=== PATIENT | male | born 1970 | race African-American/Black ===

== ENCOUNTER 2022-06-04 05:21 | Emergency (ER) | payer OTHER, MEDICAID ==
[~2022-06-04] VITALS: Ht 175.3 cm; Wt 78.6 kg
[2022-06-04 05:52] LABS: BASOPHILS % (AUTO) 0.7 % (0-1); EOSINOPHILS % (AUTO) 0.5 % (0-6); HEMATOCRIT 43.9 % (42.0-52.0); LYMPHOCYTES % (AUTO) 29.1 % (21-51); MEAN CORPUSCULAR HEMOGLOBIN 29.8 PG (27.0-31.0); MEAN CORPUSCULAR HGB CONC 34.3 g/dL (33.0-36.5); MEAN CORPUSCULAR VOLUME 86.9 FL (78-98); MEAN PLATELET VOLUME 8.3 FL (7.4-10.4); MONOCYTES # (AUTO) 0.7 X10'3 (0-0.9); MONOCYTES % (AUTO) 10.2 % (2-12); NEUTROPHILS # (AUTO) 4.2 X10'3 (1.8-7.7); NEUTROPHILS % (AUTO) 59.5 % (42-75); PLATELET COUNT 325 X10'3 (140-440); RED BLOOD COUNT 5.05 X10'6 (4.70-6.10); RED CELL DISTRIBUTION WIDTH 14.1 % (11.5-14.5)
[2022-06-04 06:12] LABS: ALANINE AMINOTRANSFERASE 30 U/L (12-78); ALBUMIN 3.5 G/DL (3.4-5.0); ALBUMIN/GLOBULIN RATIO 0.8 (1.1-1.5); ALKALINE PHOSPHATASE 134 IU/L (46-116); ANION GAP 8 (8-16); ASPARTATE AMINO TRANSFERASE 15 U/L (10-37); BILIRUBIN,TOTAL 0.7 MG/DL (0.1-1.0); BLOOD UREA NITROGEN 12 MG/DL (7-18); BUN/CREATININE RATIO 6.8 (5.4-32.0); CALCIUM 9.1 MG/DL (8.5-10.1); CHLORIDE 92 MMOL/L (99-107); CREATININE 1.77 MG/DL (0.60-1.10); MAGNESIUM 2.3 MG/DL (1.5-2.4); SODIUM 127 MMOL/L (135-145); TOTAL CARBON DIOXIDE 26.9 MMOL/L (24-32); eGFR 49 ML/MIN
[2022-06-04 06:15] LABS: POTASSIUM 4.2 MMOL/L (3.5-5.1)
[2022-06-04 06:16] LABS: GLUCOSE 514 MG/DL (70-104)
[2022-06-04] MEDS ORDERED: insulin regular, human 10 units/0.1 ml syringe IV ONE (06:30)
[2022-06-04] MEDS ORDERED: normal saline 1000ML IV soln IVB ONE (06:30)
[2022-06-04 07:26] LABS: CREATINE KINASE 233 U/L (39-308)
[2022-06-04 09:15] VITALS: BP 127/93
== END 2022-06-04 09:24 | disposition home or self-care (01) ==
LOC: ER 05:21
DX: R07.89 Other chest pain (principal); E11.9 Type 2 diabetes mellitus without complications; F15.10 Other stimulant abuse, uncomplicated; F41.9 Anxiety disorder, unspecified; F32.A Depression, unspecified; F17.200 Nicotine dependence, unspecified, uncomplicated; Z72.89 Other problems related to lifestyle
CPT/HCPCS: 36415; 71045; 80053; 82550; 82948; 83735; 83880; 84484; 85025; 85610; 93005; 96361; 96374; 99285; J1815; J7030

== ENCOUNTER 2022-08-21 01:30 | Emergency (ER) | payer MEDICAID, OTHER ==
[~2022-08-21] VITALS: Ht 175.3 cm; Wt 90.0 kg
[2022-08-21 01:50] LABS: BASOPHILS # (AUTO) 0.1 X10'3 (0-0.2); BASOPHILS % (AUTO) 0.5 % (0-1); EOSINOPHILS % (AUTO) 0.3 % (0-6); HEMATOCRIT 46.5 % (42.0-52.0); HEMOGLOBIN 15.9 g/dl (14.0-17.9); LYMPHOCYTES # (AUTO) 1.3 X10'3 (1.1-4.8); LYMPHOCYTES % (AUTO) 10.9 % (21-51); MEAN CORPUSCULAR HEMOGLOBIN 30.9 PG (27.0-31.0); MEAN CORPUSCULAR HGB CONC 34.1 g/dL (33.0-36.5); MEAN CORPUSCULAR VOLUME 90.7 FL (78-98); MEAN PLATELET VOLUME 8.3 FL (7.4-10.4); MONOCYTES # (AUTO) 0.9 X10'3 (0-0.9); MONOCYTES % (AUTO) 8.1 % (2-12); NEUTROPHILS # (AUTO) 9.3 X10'3 (1.8-7.7); NEUTROPHILS % (AUTO) 80.2 % (42-75); PLATELET COUNT 298 X10'3 (140-440); RED BLOOD COUNT 5.13 X10'6 (4.70-6.10); WHITE BLOOD COUNT 11.6 X10'3 (4.5-11.0)
[2022-08-21] MEDS ORDERED: normal saline 1000ML IV soln IVB ONE ×2 (01:50→03:35)
[2022-08-21 02:11] LABS: ALANINE AMINOTRANSFERASE 39 U/L (12-78); ALBUMIN 4.1 G/DL (3.4-5.0); ALBUMIN/GLOBULIN RATIO 0.9 (1.1-1.5); ALKALINE PHOSPHATASE 114 IU/L (46-116); ANION GAP 19 (8-16); ASPARTATE AMINO TRANSFERASE 83 U/L (10-37); BLOOD UREA NITROGEN 37 MG/DL (7-18); BUN/CREATININE RATIO 17.1 (5.4-32.0); CALCIUM 9.8 MG/DL (8.5-10.1); CHLORIDE 99 MMOL/L (99-107); CREATININE 2.17 MG/DL (0.60-1.10); POTASSIUM 3.6 MMOL/L (3.5-5.1); SODIUM 134 MMOL/L (135-145); TOTAL CARBON DIOXIDE 16.3 MMOL/L (24-32); TOTAL PROTEIN 8.5 G/DL (6.4-8.2); eGFR 39 ML/MIN
[2022-08-21 02:46] LABS: GLUCOSE 492 MG/DL (70-104)
[2022-08-21] MEDS ORDERED: insulin regular, human 10 units/0.1 ml syringe IV ONE (05:05)
[2022-08-21 05:30] VITALS: BP 148/91
[2022-08-21 07:05] LABS: D-DIMER 0.25 MG/L FEU (0-0.50)
[2022-08-22] MEDS ORDERED: LANTUS SQ (14:28)
== END 2022-08-21 08:07 | disposition home or self-care (01) ==
LOC: ER 01:31
DX: E11.65 Type 2 diabetes mellitus with hyperglycemia (principal); R07.89 Other chest pain; I10 Essential (primary) hypertension; F15.20 Other stimulant dependence, uncomplicated
CPT/HCPCS: 36415; 71045; 80053; 82948; 83880; 84484; 85025; 85379; 93005; 96361; 96374; 99285; J1815; J7030

== ENCOUNTER 2022-08-22 13:59 | Emergency (ER) | payer MEDICAID ==
[~2022-08-22] VITALS: Ht 175.3 cm; Wt 85.9 kg
[2022-08-22] MEDS ORDERED: insulin regular, human 10 units/0.1 ml syringe SQ ONE (14:25)
[2022-08-22] MEDS ORDERED: LANTUS SQ (14:28)
[2022-08-22 15:03] VITALS: BP 173/105
== END 2022-08-22 15:23 | disposition home or self-care (01) ==
LOC: ER 14:00
DX: Z76.0 Encounter for issue of repeat prescription (principal); E11.9 Type 2 diabetes mellitus without complications; I10 Essential (primary) hypertension; F15.20 Other stimulant dependence, uncomplicated
CPT/HCPCS: 82948; 96372; 99283; J1815; J7030

== ENCOUNTER 2022-09-02 15:20 | Emergency (ER) | payer MEDICAID ==
[~2022-09-02] VITALS: Ht 175.3 cm; Wt 81.8 kg
[~2022-09-02 15:20] MED LIST: LANTUS SQ
[2022-09-02] MEDS ORDERED: Insulin Reg/NS 100units/100mL 100 ML IV PRN (15:45)
[2022-09-02] MEDS ORDERED: normal saline 1000ML IV soln IVB ONE ×2 (15:45→17:40)
[2022-09-02] MEDS ORDERED: insulin regular, human U-100 3ml vial - multi-dose IV ONE (15:45)
[2022-09-02 16:08] LABS: BASOPHILS % (AUTO) 0.4 % (0-1); EOSINOPHILS # (AUTO) 0.1 X10'3 (0-0.9); EOSINOPHILS % (AUTO) 1.1 % (0-6); HEMATOCRIT 45.1 % (42.0-52.0); HEMOGLOBIN 15.4 g/dl (14.0-17.9); LYMPHOCYTES # (AUTO) 1.7 X10'3 (1.1-4.8); LYMPHOCYTES % (AUTO) 20.7 % (21-51); MEAN CORPUSCULAR HEMOGLOBIN 30.6 PG (27.0-31.0); MEAN CORPUSCULAR HGB CONC 34.1 g/dL (33.0-36.5); MEAN CORPUSCULAR VOLUME 89.8 FL (78-98); MEAN PLATELET VOLUME 8.1 FL (7.4-10.4); MONOCYTES # (AUTO) 0.7 X10'3 (0-0.9); MONOCYTES % (AUTO) 8.7 % (2-12); NEUTROPHILS # (AUTO) 5.8 X10'3 (1.8-7.7); NEUTROPHILS % (AUTO) 69.1 % (42-75); PLATELET COUNT 319 X10'3 (140-440); RED BLOOD COUNT 5.02 X10'6 (4.70-6.10); RED CELL DISTRIBUTION WIDTH 13.7 % (11.5-14.5); WHITE BLOOD COUNT 8.4 X10'3 (4.5-11.0)
[2022-09-02 16:35] LABS: ALANINE AMINOTRANSFERASE 25 U/L (12-78); ALBUMIN/GLOBULIN RATIO 0.7 (1.1-1.5); ALKALINE PHOSPHATASE 153 IU/L (46-116); ANION GAP 6 (8-16); ASPARTATE AMINO TRANSFERASE 19 U/L (10-37); BILIRUBIN,TOTAL 0.4 MG/DL (0.1-1.0); BLOOD UREA NITROGEN 14 MG/DL (7-18); BUN/CREATININE RATIO 10.3 (5.4-32.0); CALCIUM 8.9 MG/DL (8.5-10.1); CHLORIDE 95 MMOL/L (99-107); CREATININE 1.36 MG/DL (0.60-1.10); MAGNESIUM 2.3 MG/DL (1.5-2.4); POTASSIUM 4.6 MMOL/L (3.5-5.1); SODIUM 130 MMOL/L (135-145); TOTAL CARBON DIOXIDE 28.6 MMOL/L (24-32); TOTAL PROTEIN 7.1 G/DL (6.4-8.2); eGFR 67 ML/MIN
[2022-09-02 16:41] LABS: ABG BASE EXCESS 0.5 mmol/L (-2.0-2.0); ABG HCO3 24.3 mmol/L (22.0-26.0); ABG OXYGEN SATURATION 97.8 % (94-97); ABG PCO2 (T) 36.6 mmHg (35.0-48.0); ABG PO2 (T) 101.6 mmHg (75.0-100.0); ALLEN'S TEST POSITIVE; FCOHb 2.4 % (0.0-3.9); FMetHb 0.2 % (0.0-1.5); FO2Hb 95.3 % (94-97); TOTAL HEMOGLOBIN 15.5 G/dl (14.0-17.9)
[2022-09-02 16:42] LABS: GLUCOSE 519 MG/DL (70-104)
[2022-09-02 18:18] VITALS: BP 155/91
[2022-09-02] MEDS ORDERED: METF-881 PO (18:20)
[2022-09-02] MEDS ORDERED: LANTUS SQ (18:20)
[2022-09-02] MEDS ORDERED: [UNRECOGNIZED DRUG - CODE] MC (18:26)
== END 2022-09-02 18:21 | disposition home or self-care (01) ==
LOC: ER 15:21
DX: E11.65 Type 2 diabetes mellitus with hyperglycemia (principal); I10 Essential (primary) hypertension; F15.20 Other stimulant dependence, uncomplicated
CPT/HCPCS: 36415; 36600; 71045; 80053; 82009; 82803; 82948; 83735; 83880; 84484; 85018; 85025; 93005; 96361; 96374; 99285; J1815; J7030

== ENCOUNTER 2025-02-16 17:52 | Inpatient (IN) | payer MEDICAID ==
[~2025-02-16] VITALS: Ht 176.5 cm; Wt 80.5 kg
[~2025-02-16 17:52] MED LIST changes: +ATOR20TA66 PO; +CLOP75TA34 PO; +INSU100V56 SQ; -LANTUS SQ; +METF-438 PO; +METO-384 PO; +MIRT-142 PO
[2025-02-16 19:01] LABS: ALBUMIN 4.4 G/DL (3.4-5.0); ANION GAP 14 (8-16); BLOOD UREA NITROGEN 29 MG/DL (7-18); BUN/CREATININE RATIO 12.4 (10.0-20.0); CALCIUM 9.8 MG/DL (8.5-10.1); CHLORIDE 96 MMOL/L (99-107); CREATININE 2.33 MG/DL (0.60-1.10); POTASSIUM 4.2 MMOL/L (3.5-5.1); SODIUM 137 MMOL/L (135-145); TOTAL CARBON DIOXIDE 27.1 MMOL/L (24-32); eCRCL 37 ML/MIN; eGFR 36 ML/MIN
[2025-02-16 19:02] LABS: BASOPHILS # (AUTO) 0.1 X10'3 (0-0.2); BASOPHILS % (AUTO) 0.9 % (0-1); EOSINOPHILS % (AUTO) 0.5 % (0-6); HEMATOCRIT 47.7 % (42.0-52.0); HEMOGLOBIN 16.1 g/dl (14.0-17.9); LYMPHOCYTES # (AUTO) 2.3 X10'3 (1.1-4.8); LYMPHOCYTES % (AUTO) 30.2 % (21-51); MEAN CORPUSCULAR HEMOGLOBIN 30.4 PG (27.0-31.0); MEAN CORPUSCULAR HGB CONC 33.8 g/dL (33.0-36.5); MEAN CORPUSCULAR VOLUME 90.1 FL (78-98); MONOCYTES # (AUTO) 0.7 X10'3 (0-0.9); MONOCYTES % (AUTO) 8.9 % (2-12); NEUTROPHILS # (AUTO) 4.6 X10'3 (1.8-7.7); NEUTROPHILS % (AUTO) 59.5 % (42-75); PLATELET COUNT 367 X10'3 (140-440); RED BLOOD COUNT 5.29 X10'6 (4.70-6.10); RED CELL DISTRIBUTION WIDTH 14.1 % (11.5-14.5); WHITE BLOOD COUNT 7.6 X10'3 (4.5-11.0)
[2025-02-16 19:11] LABS: GLUCOSE 565 MG/DL (70-104)
--- NOTE | 2025-02-16 22:26 | Physician Documentation ---
History of Present Illness ~ Chief Complaint: Post-operative complication Stated Complaint: LEFT FOOT PAIN Time Seen by MD: 22:13 Primary Medical Doctor: NONE Mode of Arrival: POV HPI Patient presents to the emergency room with concerns for his left 2nd and 3rd digits on his foot. He has had previous amputation secondary to osteomyelitis. He is concerned that the 3rd one in his beginning to develop a hammertoe and this is how he ended up losing his 2nd toe because there who has a blister that developed on his hammertoe. No fevers. Patient endorses not drinking enough water and drinks a lot of pop he states he feels thirsty. He has been out in the hot sun Tetanus witin 5 years: Yes Medication Reconciliation Allergies: Coded Allergies: No Known Allergies (Unverified , 09/11/22) Scheduled Atorvastatin Calcium (Atorvastatin Calcium), 80 MG PO DAILY Clopidogrel Bisulfate (Clopidogrel), 75 MG PO DAILY Insulin Glargine,Hum.rec.anlog (Insulin Glargine), 17 UNITS SQ HS, (Reported) Insulin Glargine,Hum.rec.anlog (Insulin Glargine), 7 UNITS SQ QAM, (Reported) Metformin HCl (Metformin HCl), 500 MG PO TID, (Reported) Metoprolol Succinate (Metoprolol Succinate), 50 MG PO DAILY Mirtazapine (Remeron), 1 TAB PO HS, (Reported) Past Medical History Past Medical History: Coronary Artery Disease, Hypertension, Diabetes, Anxiety, Depression Past Surgical History: noncontributory Alcohol Use: Occasionally Drug Use: methamphetamine Lives with: Family Lives In: Home Review of Systems ROS All review of systems negative except as per HPI Physical Exam Vital Signs: Temperature: 96.8, Source: Temporal, Heart Rate: 120, Respiratory Rate: 16, BP: 141/105, Pulse Oximetry: 100, Weight: 80.450 Oxygen Flow Rate: 0 Physical Exam General: Patient is awake, alert, oriented x4 in no acute distress and well appearing.~ Head: Normocephalic and atraumatic. Eyes: Conjunctival normal. EOMI. PERRL. ENT: Mucous membranes very dry. Neck: Supple, trachea is midline. Chest: Clear to auscultation bilaterally without rales, rhonchi, or wheezes. There is no accessory muscle use or retractions. Cardiac: Tachycardic and regular without murmurs, gallops, or rubs. Abd: Soft, nondistended, nontender, with normoactive bowel sounds. No guarding, rebound, or rigidity. Extremities: Normal strength. Normal range of motion. Left great toe and 2nd toe amputated. Some scaling over stump of 2nd digit on left toe. Mild hammertoe deformity of 3rd digit of left foot. No signs of twyla infection Progress Results/Orders Results/Orders Completed Orders - LAURI MARTINEZ MD Normal Saline 1000ml (Sodium Chloride 10 (02/16/25 22:15) Vital Signs 02/16/25 02/16/25 02/16/25 17:58 21:48 21:58 Temp 96.8 Pulse 135 120 Resp 18 16 16 B/P (MAP) 140/97 141/105 (117) Pulse Ox 97 100 O2 Flow Rate 0 Laboratory Tests Test 02/16/25 18:24 02/16/25 18:34 White Blood Count 7.6 Red Blood Count 5.29 Hemoglobin 16.1 Hematocrit 47.7 Mean Corpuscular Volume 90.1 Mean Corpuscular Hemoglobin 30.4 Mean Corpuscular Hemoglobin Concent 33.8 Red Cell Distribution Width 14.1 Platelet Count 367 Mean Platelet Volume 8.0 Neutrophils (%) (Auto) 59.5 Lymphocytes (%) (Auto) 30.2 Monocytes (%) (Auto) 8.9 Eosinophils (%) (Auto) 0.5 Basophils (%) (Auto) 0.9 Neutrophils # (Auto) 4.6 Lymphocytes # (Auto) 2.3 Monocytes # (Auto) 0.7 Eosinophils # (Auto) 0.0 Basophils # (Auto) 0.1 CBC Comment Sodium Level 137 Potassium Level 4.2 Chloride Level 96 L Carbon Dioxide Level 27.1 Anion Gap 14 Blood Urea Nitrogen 29 H Creatinine 2.33 H Estimated GFR/1.73 m2 36 BUN/Creatinine Ratio 12.4 Glucose Level 565 *H Calcium Level 9.8 Albumin 4.4 Chemistry Comments Procalcitonin < 0.05 Medical Decision Making Findings Patient presents to the emergency room with concerns of his left toes as per HPI. Differentials include but are not limited to osteomyelitis, chronic skin changes, cellulitis, sepsis therefore emergent labs ordered. Labs are concerning for significant hyperglycemia as well as acute kidney injury. He will require admission. IV fluids initiated. I will defer to any investigation to patient's concern for his foot to the hospitalist. Departure Admitted to Inpatient Unit: yes, to hospitalist Impression: Primary Impression: Uncontrolled diabetes mellitus Additional Impression: Acute kidney injury Condition: Guarded Referrals: NO PRIMARY CARE PROVIDER (PCP) Signature Scribe Signature: No scribe Attestation: The note accurately reflects work and decisions made by me.Lauri Martinez MD 02/16/25 22:31 LAURI MARTINEZ MD Feb 16, 2025 22:26
[2025-02-16] MEDS: normal saline 1000ML IV soln IVB ONE (22:36)
[2025-02-17 00:39] LABS: BILIRUBIN,URINE NEGATIVE (Neg); CLARITY,URINE CLEAR (Clear); COLOR,URINE YELLOW (Yellow); GLUCOSE, URINE >=1000 mg/dl (Neg); KETONES,URINE 15 mg/dl (Neg); LEUKOCYTE ESTERASE ,URINE NEGATIVE (Neg); NITRITES, URINE NEGATIVE (Neg); OCCULT BLOOD,URINE NEGATIVE (Neg); PROTEIN,URINE TRACE mg/dl (Neg); UROBILINOGEN,URINE 0.2 E.U/dL (0.2-1.0)
[2025-02-17 00:41] LABS: UA COLLECTION TYPE VOIDED
[2025-02-17 00:45] LABS: RBC,URINE 0-2 /HPF (0-2); SQUAMOUS EPITHELIAL CELL,UR FEW /LPF (FEW); WBC,URINE 0-4 /HPF (0-4)
[2025-02-17] MEDS: insulin regular, human 10 units/0.1 ml syringe IV ONE (00:45)
[2025-02-17 00:46] LABS: BACTERIA,URINE NONE SEEN /HPF (Neg)
[2025-02-17 00:48] LABS: URINE AMPHETAMINE SCREEN POSITIVE (Neg); URINE BARBITUATE SCREEN NEGATIVE (Neg); URINE BENZODIAZEPINES SCREEN NEGATIVE (Neg); URINE CANNABINOID SCREEN NEGATIVE (Neg); URINE COCAINE SCREEN NEGATIVE (Neg); URINE METHADONE SCREEN NEGATIVE (Neg); URINE OPIATE SCREEN NEGATIVE (Neg); URINE PHENCYCLIDINE SCREEN NEGATIVE (Neg)
[2025-02-17] MEDS ORDERED: acetaminophen 325mg tablet PO PRN (02:15)
[2025-02-17] MEDS ORDERED: magnesium Cl slow-release 64mg tablet PO PRN (02:15)
[2025-02-17] MEDS ORDERED: mag hydrox/Alum hydrox/simeth 30ml oral suspension PO PRN (02:15)
[2025-02-17] MEDS ORDERED: magnesium sulf-water 2g/50mL 50 ML IV PRN (02:15)
[2025-02-17] MEDS ORDERED: potassium Cl 40MEQ/1/2NS 520ml 520 ML IV PRN (02:15)
[2025-02-17] MEDS ORDERED: magnesium sulf-water 4G/100mL 100 ML IV PRN (02:15)
[2025-02-17] MEDS ORDERED: magnesium hydroxide 30ml (MOM) UD suspension PO PRN (02:15)
[2025-02-17] MEDS ORDERED: potassium Cl 20 mEq SR tablet PO PRN ×2 (02:15)
[2025-02-17] MEDS ORDERED: PERFLUTREN PROTEIN-A MICROSPHR (Optison) 0.22 MG/ML 3ML VIAL IV PRN (02:23)
--- NOTE | 2025-02-17 02:23 | HISTORY AND PHYSICAL-Residence ---
History & Physical Providers to CC Resident Creating Document: LOS LEES, RES CC: VALENTÍN GONZALES MD ~ History of Present Illness Primary Medical Doctor: NONE Reason for Admit\Complaint: Concern for a wound History of Present Illness A 54-year-old male with past medical history of CHF, CAD status post four stent placements, neuropathy, DM type 2 presented to the ED with concern for a wound on his left foot. Patient states that he underwent amputation after a blistered started on his foot that is similar to the one that he has right now. When he came in the patient's blood sugar was very high in the range of 560 toes and renal function tests were bed. On examination patient's wound was just healing from his previous amputation. Since patient had worsening renal tests and high blood sugars patient has been admitted to the hospital Allergies: Coded Allergies: No Known Allergies (Unverified , 09/11/22) Home Medications Home Medications Active Metoprolol Succinate 50 Mg Tab.sr.24h 50 Mg PO DAILY 90 Days Atorvastatin Calcium 20 Mg Tablet 80 Mg PO DAILY 90 Days Clopidogrel (Clopidogrel Bisulfate) 75 Mg Tablet 75 Mg PO DAILY 90 Days Do not stop medication unless instructed by prescriber. Reported Metformin HCl 1,000 Mg Tablet 500 Mg PO TID 30 Days Remeron (Mirtazapine) 15 Mg Tablet 1 Tab PO HS 30 Days Insulin Glargine (Insulin Glargine,Hum.rec.anlog) 100 Unit/Ml Vial 7 Units SQ QAM Insulin Glargine (Insulin Glargine,Hum.rec.anlog) 100 Unit/Ml Vial 17 Units SQ HS Past Medical History Past Medical History CHF CAD status post four stents Neuropathy DM type 2 Osteomyelitis Past Surgical History Surgical History Comment Amputation of big toe in July last year Amputation of 2nd to a month ago Ankle fracture repair Stent placements Past Social History Social History Comment Lives at home Smokes three cigarettes per day for the last 30 years Drinks hard liquor and beer every day for the last 40 years Consumes marijuana and meth Sees Dr. Manning for Cardiology [facility] primary care Alcohol Use: Occasionally Drug Use: Methamphetamine Lives with: Family Lives In: Home ROS ROS All other systems reviewed in full and negative except for the positives mentioned in HPI Exam Vitals: Vital Signs Date Time Temp Pulse Resp B/P (MAP) Pulse Ox O2 Delivery O2 Flow Rate FiO2 02/16/25 21:58 120 16 141/105 (117) 100 02/16/25 17:58 96.8 0 General: General: Alert, awake, oriented, not in acute distress HEENT: PERRLA, no icterus, pallor, lymphadenopathy, carotid bruit Respiratory system: Bilateral vesicular breath sounds heard, no adventitious breath sounds CVS: S1-S2 heard, no murmurs/rubs/gallop GI: Soft, nontender, no organomegaly, no guarding/rigidity, bowel sounds present Neuro: No focal neurological deficits present Extremities: Amputation of the left big toe and 2nd toe, no edema or cyanosis Skin: Warm and dry Diagnostic Data Last Recorded Lab Results: 02/16/25182302/16/251823 Advance Care Planning Advanced Care plannin - 30 Minutes (I spent 20 minutes discussing various resuscitative measures and the patient decided to be full code) Additional Plan Assessment: A 54-year-old male with past medical history of CHF and CAD status post four stents presented to the ED in worry for wound. On further evaluation patient's wound was healing from his previous surgery of amputation, furthermore patient had very high blood sugar in the range of 500s and worsening renal function for which she is admitted. Plan: Hyperglycemia versus HHS DM type 2 Follow up with serum osmolality and A1c Urine positive for ketones but no acidosis Continue to monitor blood sugars Continue IV fluid NS at 100 cc/hour Plan to place on hyper/hypoglycemia protocol once the blood sugars dropped down to less than 250 with long-acting and short-acting insulins Patient completely asymptomatic Prerenal JOHN probably secondary to renal tubular stasis Elevated BUN and creatinine Continue IV fluids at 100 cc/hour Continue to monitor BMP Substance use disorder U tox positive for amphetamines senior director creative services consult Rule out endocarditis with echo findings CHF, pending EF Follow up with echo Currently patient asymptomatic Consider optimization GDM T CAD status post stents Start on aspirin or clopidogrel after medical reconciliation And optimization with GDM T Neuropathy Continue medications after medical reconciliation History of osteomyelitis and amputation Follow up with lipid panel Code status: Full code Diet: 75 g carb controlled DVT prophylaxis: Heparin Disposition: Admit to ortho, follow up with echo, serum osmolality and A1c Los Lees MD Internal Medicine, PGY 1 Patient evaluated using HIPPA compliant AV device Agree with plan as discussed with the resident Valentín Gonzales MD Date of Service: Feb 17, 2025 Billing Provider: VALENTÍN GONZALES MD, SIVA, RES Feb 17, 2025 02:23 VALENTÍN GONZALES MD Feb 17, 2025 03:46
[2025-02-17] MEDS: normal saline 1000ml 1,000 ML IV SCH (02:50)
[2025-02-17 02:55] LABS: MAGNESIUM 2.3 MG/DL (1.5-2.4); OSMOLALITY 304 MOSM/K (280-300); POTASSIUM 3.6 MMOL/L (3.5-5.1)
[2025-02-17 03:13] LABS: HEMOGLOBIN A1C 11.2 % (4.5-6.2)
[2025-02-17] MEDS ORDERED: SPIR25TA5 PO (03:29)
[2025-02-17] MEDS ORDERED: INSU100I8 SQ (03:29)
[2025-02-17] MEDS ORDERED: VENL75CA61 PO (03:29)
[2025-02-17] MEDS ORDERED: METF-438 PO (07:27)
[2025-02-17] MEDS: K and/or MAG REPLACEMENT MC SCH (08:00)
[2025-02-17] MEDS ORDERED: INSULIN LISPRO 100 UNIT/ML INSULN.PEN MULTI-DOSE SQ SCH ×2 (08:10→12:00)
[2025-02-17] MEDS ORDERED: dextrose 50%-water 50ml dispensing syringe IV PRN ×3 (08:20→08:25)
[2025-02-17] MEDS ORDERED: glucagon, human recombinant 1mg kit SUBCUT PRN ×2 (08:20→08:25)
[2025-02-17] MEDS ORDERED: DEXTROSE 15 GM of carb/4 tabs (each vial/BOTTLE has 4 tablets) PO PRN ×4 (08:20→08:25)
[2025-02-17] MEDS: metoprolol succinate 25mg (24-HOUR) SR. Tablet PO SCH (08:34)
[2025-02-17] MEDS: atorvastatin 20mg tablet PO SCH (08:35)
[2025-02-17] MEDS: venlafaxine XR 75mg capsule (Q24H) PO SCH (08:35)
[2025-02-17] MEDS: heparin, porcine 5000 units/ml vial SQ SCH (08:36)
[2025-02-17] MEDS: docusate sod 100mg capsule PO SCH (08:36)
[2025-02-17 08:58] LABS: CHOL/HDL RATIO 3.4 (0.00-4.99); CHOLESTEROL 178 MG/DL (0-200); HDL CHOLESTEROL 52 MG/DL (35-60); LDL CHOLESTEROL 100 MG/DL (50-100); PRO BRAIN NATRIURETIC PEPTIDE 123 PG/ML (0-125); THYROID STIMULATING HORMONE 0.76 ulU/ml (0.34-4.50); TRIGLYCERIDES 85 MG/DL (20-135)
[2025-02-17] MEDS: INSULIN LISPRO 100 UNIT/ML INSULN.PEN MULTI-DOSE SQ SCH ×2 (09:02→11:50)
[2025-02-17 09:51] VITALS: RESP 16; O2SAT 100
[2025-02-17 10:00] VITALS: BP 123/86; PULSE 96; RESP 14; TEMP 98.3; O2SAT 96
--- NOTE | 2025-02-17 10:10 | PROGRESS NOTE- Residence ---
Progress Note - Resident Providers to CC Resident Creating Document: RUBEN FONG, RES ~ Antibiotic Timeout Antibiotic Ordered?: No Subjective Patient was seen at the bedside this morning. His glucose dropping down to around 200 after 10 units IV insulin, she has a history of alcohol. He wonders if his kidney function is getting better or not. Objective Vital Signs Date Time Temp Pulse Resp B/P (MAP) Pulse Ox O2 Delivery O2 Flow Rate FiO2 02/17/25 09:51 16 100 Room Air 0.0 02/17/25 07:53 99 02/17/25 03:17 146/90 (108) 02/16/25 17:58 96.8 Result Diagram: 02/16/25 1824 02/17/25 0231 Vitals were stable at the moment with CT 99, RR 16, BP 140/90 mm Hg, pulse oximetry 100% on room air. On exam, General: Well alert, well oriented, not confused, not agitated, not in acute distress, well cooperated during the physical. HEENT: Conjunctive are pink, sclerae clear, no icterus, pupil is equal in both sides, reactive to light, no ear discharge, no pharyngeal erythema or an edema, mouth and lips are moist. Neck: Supple, no JVD, no lymphadenopathy and thyromegaly. 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: No focal neurological deficits, no motor and sensory weakness in all 4 extremities, could move all 4 extremities Musculoskeletal: No joint swelling, deformities, inflammations, and no scoliosis and back tenderness Skin: No active skin lesions and rashes Assessment Assessment A 54 years old male with a past medical history of CAD, s/p four stents for RCA thrombosis (complicated with history of cardiac arrest and VFib), T2 DM with neuropathy, substance abuse history with methamphetamine, s/p amputated left 1st and 2nd toes came in with the concern of left foot wound and found to have the severely elevated RBS with 560. He was admitted for the better blood glucose control and management for the Acute on chronic kidney injury. Plan Plan # Uncontrolled and non-complaince T2DM # Peripheral neuropathy -pt RBS dropped down to 207 after IV Insulin 10 units -Put the pt on the hyper/hypoglycemic protocol with medium dose sliding scale regimen, 5 units of glargine at nighttime and 8 units of lispro after meals. -HGB A1c 11.2 -continue IV fluid -wound care # JOHN from possible prerenal- renal tubular stasis -pending urine and serum osmolality, urine lytes -her baseline creatinine was around 1.1, EGFR was >90 last year -monitor I's and O's, rate of EGFR declining with time -continue IV fluid with 100 mL/hr, daily CMP -avoid using nephrotoxic drugs including pain killer # substance abuse disorder-amphetamine -substance navigator was requested and social media marketer were provided, appreciate -patient did not show any active S/S IE aka did not meet any Deshpande's criteria at the moment -educated about the risks and relationships of the possible consequences from the substance abuse # Hx of HFpEF 60%- not exacerbated # CAD, s/p 4 stents for RCA thrombosis (complicated with history of cardiac arrest and VFib) -not in acute exacerbation -cont home meds after med rec CODE STATUS: Full code DVT prophylaxis: Sc heparin Lines/tubes: Peripheral IV GI prophylaxis: None Nutrition: 75 g carb controlled Prognosis: Guarded Disposition: Continue medical management including blood sugar control, diabetic foot care, IV fluids, substance navigation and social media marketer for substance abuse, PT eval and DC plan. Resident MD attestation: Patient was seen, examined and discussed with attending MD, Dr. Janay FONG MD Internal Medicine Resident, PGY2 [facility] Date of Service: Feb 17, 2025 Billing Provider: EVAN DANIEL MD Common Visit Codes: [id number] INP/OBS CARE(HIGH) RUBEN FONG, RES Feb 17, 2025 10:10 EVAN DANIEL MD Feb 17, 2025 18:39
[2025-02-17] MEDS: JUVEN Smoothie Arginine/Glut./Ca2+Bmb (Juven 19.3pkt) 240ml cup PO SCH (17:30)
[2025-02-17 18:00] VITALS: BP 156/101; PULSE 50; RESP 18; TEMP 97.9; O2SAT 95
--- NOTE | 2025-02-17 18:00 | CARDIOLOGY REPORT ---
APPROVED REPORT EXAM: Comprehensive 2D, Doppler, and color-flow Echocardiogram. Patient Location: [facility] Heart Rate: 85 bpm Rhythm: SINUS W/ BBB Indications ENDOCARDITIS MYOCARDIAL INFARCTION - STENT X 1 HYPERTENSION DIABETES Site Leader: Aiden Barry MD PREVIOUS: 07/16/23 [facility] JT EF: 60%; nlLV; mRVE-nlFX; nlLA;trMR; mTR; 2D Dimensions RVDd 3.5 cm LVOT Diameter 2.17 (1.8-2.4cm) CO 4.0 L/min M-Mode Dimensions Left Atrium(MM) 3.37 (2.5-4.0cm) IVSd 0.93 (0.7-1.1cm) LVDd 4.23 (4.0-5.6cm) Aortic Root 3.37 (2.2-3.7cm) PWd 0.99 (0.7-1.1cm) Aortic Cusp Exc 2.49 (1.5-2.0cm) IVSs 1.28 cm MV EPSS 2.0 (<0.5cm) LVDs 2.95 (2.0-3.8cm) FS (%) 30 % PWs 1.28 cm ESV(Teich) 33.5 ml LVEF(%) 58 (>50%) Aortic Valve AoV Peak Otto. 114.5 cm/s AoV VTI 18.9 cm AO Peak GR. 5.2 mmHg AO Mean GR. 3 mmHg LVOT VTI 15.52 cm LVOT Peak Otto. 86.9 cm/s JAMIE(VTI)/BSA 3.03 cm2/m2 JAMIE (VTI) 3.03 cm2 Mitral Valve MV E Velocity 76.6 cm/s MV Peak Gr. 2 mmHg MV A Velocity 99.3 cm/s MV PHT 46 ms E/A Ratio 0.8 MVA (PHT) 4.78 cm2 MV VMax78.2 cm/s Tricuspid Valve TR P. Velocity 148 cm/s RAP ESTIMATE 10 mmHg TR Peak Gr. 9 mmHg RVSP 19 mmHg LEFT VENTRICLE Normal LV size with mild concentric hypertrophy. Anterior septal hypokinesis. Overall well preserved systolic function. LVEF is 55%. RIGHT VENTRICLE RV is mildly increased in size with low normal function. ATRIA The left atrium size is normal. AORTIC VALVE Trileaflet AV appears mildly sclerotic without stenosis or insufficiency. MITRAL VALVE Normal MV annulus with thickened leaflets without stenosis. Trace regurgitation. TRICUSPID VALVE TV appears structurally normal with trace regurgitation. PULMONIC VALVE Normal PV without stenosis, physiologic insufficiency. GREAT VESSELS Aortic root is normal in size. Normal appearing arch with normal flow velocities. Ascending aorta is normal in size. PERICARDIUM Normal pericardium. No effusion. Other Information Study Quality: Adequate Conclusion Normal LV size with mild concentric hypertrophy. Anterior septal hypokinesis. Overall well preserved systolic function. LVEF is 55%. RV is mildly increased in size with low normal function. The left atrium size is normal. Trileaflet AV appears mildly sclerotic without stenosis or insufficiency. Normal MV annulus with thickened leaflets without stenosis. Trace regurgitation. TV appears structurally normal with trace regurgitation. Normal pericardium. No effusion.
[2025-02-17 20:00] VITALS: RESP 18; O2SAT 95
[2025-02-17] MEDS: insulin glargine (Lantus) pen - multi-dose SQ SCH (20:28)
[2025-02-17 22:00] VITALS: BP 140/87; PULSE 93; RESP 16; TEMP 98.2; O2SAT 100
[2025-02-18] VITALS (7 sets, daily range): BP systolic 124–136; BP diastolic 62–88; PULSE 58–93; RESP 16–20; TEMP 97–98.3; O2SAT 92–100
[2025-02-18 07:17] LABS: EOSINOPHILS # (AUTO) 0.2 X10'3 (0-0.9); HEMATOCRIT 43.7 % (42.0-52.0); HEMOGLOBIN 14.9 g/dl (14.0-17.9); LYMPHOCYTES # (AUTO) 2.4 X10'3 (1.1-4.8); LYMPHOCYTES % (AUTO) 48.1 % (21-51); MEAN CORPUSCULAR HEMOGLOBIN 30.3 PG (27.0-31.0); MEAN CORPUSCULAR HGB CONC 34.1 g/dL (33.0-36.5); MEAN PLATELET VOLUME 8.5 FL (7.4-10.4); MONOCYTES # (AUTO) 0.4 X10'3 (0-0.9); NEUTROPHILS % (AUTO) 39.9 % (42-75); PLATELET COUNT 268 X10'3 (140-440); RED BLOOD COUNT 4.91 X10'6 (4.70-6.10); RED CELL DISTRIBUTION WIDTH 13.6 % (11.5-14.5)
[2025-02-18] MEDS: MULTIVIT-MIN/FERROUS GLUCONATE 9 MG/15 ML LIQUID PO SCH (07:41)
[2025-02-18] MEDS: folic acid 1mg tablet PO SCH (07:43)
[2025-02-18] MEDS: cyanocobalamin 500mcg tablet PO SCH (07:43)
[2025-02-18 07:59] LABS: ALBUMIN 3.2 G/DL (3.4-5.0); ANION GAP 11 (8-16); BLOOD UREA NITROGEN 22 MG/DL (7-18); BUN/CREATININE RATIO 20.6 (10.0-20.0); CALCIUM 8.7 MG/DL (8.5-10.1); CHLORIDE 106 MMOL/L (99-107); CREATININE 1.07 MG/DL (0.60-1.10); GLUCOSE 163 MG/DL (70-104); MAGNESIUM 2.1 MG/DL (1.5-2.4); SODIUM 139 MMOL/L (135-145); TOTAL CARBON DIOXIDE 22.2 MMOL/L (24-32); eCRCL 81 ML/MIN; eGFR 87 ML/MIN
[2025-02-18 08:00] LABS: POTASSIUM 4.3 MMOL/L (3.5-5.1)
[2025-02-18] MEDS: normal saline 1000ml 1,000 ML IV ONE ×2 (11:35→11:40)
[2025-02-18] MEDS: acetaminophen 325mg tablet PO PRN (13:03)
[2025-02-18 16:02] LABS: BILIRUBIN,URINE NEGATIVE (Neg); CLARITY,URINE CLEAR (Clear); COLOR,URINE YELLOW (Yellow); GLUCOSE, URINE 500 mg/dl (Neg); KETONES,URINE NEGATIVE (Neg); LEUKOCYTE ESTERASE ,URINE NEGATIVE (Neg); NITRITES, URINE NEGATIVE (Neg); OCCULT BLOOD,URINE NEGATIVE (Neg); PROTEIN,URINE NEGATIVE (Neg); UROBILINOGEN,URINE 0.2 E.U/dL (0.2-1.0)
[2025-02-18 16:08] LABS: UA COLLECTION TYPE CLN CATCH MIDSTREAM
[2025-02-18] MEDS: ondansetron/PF 4mg/2ml inj IV PRN (17:58)
[2025-02-19 06:00] VITALS: BP 137/91; PULSE 76; RESP 16; TEMP 98; O2SAT 99
[2025-02-19 06:26] LABS: BASOPHILS % (AUTO) 0.9 % (0-1); EOSINOPHILS # (AUTO) 0.2 X10'3 (0-0.9); HEMATOCRIT 43.2 % (42.0-52.0); LYMPHOCYTES # (AUTO) 2.2 X10'3 (1.1-4.8); LYMPHOCYTES % (AUTO) 52.1 % (21-51); MEAN CORPUSCULAR HEMOGLOBIN 30.9 PG (27.0-31.0); MEAN CORPUSCULAR HGB CONC 34.7 g/dL (33.0-36.5); MEAN PLATELET VOLUME 8.2 FL (7.4-10.4); MONOCYTES # (AUTO) 0.4 X10'3 (0-0.9); MONOCYTES % (AUTO) 9.2 % (2-12); NEUTROPHILS # (AUTO) 1.4 X10'3 (1.8-7.7); NEUTROPHILS % (AUTO) 33.8 % (42-75); PLATELET COUNT 277 X10'3 (140-440); RED BLOOD COUNT 4.85 X10'6 (4.70-6.10); RED CELL DISTRIBUTION WIDTH 13.6 % (11.5-14.5); WHITE BLOOD COUNT 4.3 X10'3 (4.5-11.0)
[2025-02-19 06:32] LABS: ALBUMIN 2.8 G/DL (3.4-5.0); ANION GAP 7 (8-16); BLOOD UREA NITROGEN 15 MG/DL (7-18); BUN/CREATININE RATIO 14.9 (10.0-20.0); CALCIUM 8.4 MG/DL (8.5-10.1); CHLORIDE 106 MMOL/L (99-107); CREATININE 1.01 MG/DL (0.60-1.10); GLUCOSE 238 MG/DL (70-104); MAGNESIUM 1.7 MG/DL (1.5-2.4); POTASSIUM 4.1 MMOL/L (3.5-5.1); SODIUM 137 MMOL/L (135-145); TOTAL CARBON DIOXIDE 24.3 MMOL/L (24-32); eCRCL 86 ML/MIN; eGFR > 90 ML/MIN
[2025-02-19 08:00] VITALS: RESP 16; O2SAT 99
[2025-02-19] MEDS: insulin glargine (Lantus) pen - multi-dose SQ STA (09:11)
[2025-02-19 10:00] VITALS: BP 131/89; PULSE 74; RESP 16; TEMP 97.7; O2SAT 99
[2025-02-19] MEDS: gabapentin 300mg capsule PO ONE (11:29)
[2025-02-19] MEDS: INSULIN LISPRO 100 UNIT/ML INSULN.PEN MULTI-DOSE SQ SCH (14:18)
--- NOTE | 2025-02-19 15:39 | RADIOLOGY REPORT ---
CLINICAL HISTORY: History of toe amputation 6 weeks ago. Cellulitis. TECHNIQUE: Multi sequence multi planar MRI images of the left midfoot forefoot were obtained without IV contrast. COMPARISON: None available at the time of dictation. FINDINGS: Postsurgical changes of prior amputations involving the distal aspect of the proximal phal anx of the great toe at the base of the proximal phalanx of the 2nd digit. Prominent subcutaneous nakul ma is seen at the amputation stump of the 2nd digit and, to a lesser extent adjacent to the 1st digit amputation stump, may correlate with reported history of cellulitis. There is prominent STIR hyperin tense signal of the base of the proximal phalanx of the 2nd digit with areas of T1 hypointense signal , possible osteomyelitis in the appropriate clinical setting no other evidence for osteomyelitis. Lik olvin mild reactive marrow changes of the distal aspect of the proximal phalanx of the great toe with m ild t2/stir hyperintense signal but no associated T1 hypointense signal. No organized fluid collectio n identified to suggest abscess, although limited evaluation for abscess on noncontrast enhanced exam . There is a bipartite tibial sesamoid of the 1st metatarsal which demonstrates moderate stir hyperin tense signal, possible sesamoiditis in the appropriate clinical setting. IMPRESSION: 1. Postsurgical changes of prior amputations of the 1st and 2nd digits as described above. 2. Subcutaneous edema in the 1st and 2nd digits, greater in the 2nd digit, near the amputation stumps , may correlate with reported clinical history of cellulitis in the appropriate clinical setting. No organized fluid collection identified to suggest abscess, although limited evaluation for abscess on noncontrast enhanced exam. 3. Marrow signal abnormality of the base of the proximal phalanx of the 2nd digit, suspicious for ost eomyelitis in the setting of overlying soft tissue infection.
--- NOTE | 2025-02-19 16:27 | PROGRESS NOTE- Residence ---
Progress Note - Resident Providers to CC Resident Creating Document: RUBEN FONG RES ~ Antibiotic Timeout Antibiotic Ordered?: Yes MRSA Education MRSA Education Provided to pt: Yes Subjective *This is a progress note for 02/18/2025* Patient worsened at the bedside this morning. Patient does not complain any medical concerns except for the stomach upset and kidney injury. He did not complain about any pain/discharge from his amputated toes. Objective Vital Signs Date Time Temp Pulse Resp B/P (MAP) Pulse Ox O2 Delivery O2 Flow Rate FiO2 02/19/25 06:00 98.0 76 16 137/91 (106) 99 Room Air 02/18/25 08:00 0.0 Result Diagram: 02/19/2539 02/19/2539 Vitals were stable at the moment. On exam, General: Well alert, well oriented, not confused, not agitated, not in acute distress, well cooperated during the physical. HEENT: Conjunctive are pink, sclerae clear, no icterus, pupil is equal in both sides, reactive to light, no ear discharge, no pharyngeal erythema or an edema, mouth and lips are moist. Neck: Supple, no JVD, no lymphadenopathy and thyromegaly. 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: No focal neurological deficits, no motor and sensory weakness in all 4 extremities, could move all 4 extremities Musculoskeletal: No joint swelling, deformities, inflammations, and no scoliosis and back tenderness Skin: No active skin lesions and rashes Assessment Assessment A 54 years old male with a past medical history of CAD, s/p four stents for RCA thrombosis (complicated with history of cardiac arrest and VFib), T2 DM with neuropathy, substance abuse history with methamphetamine, s/p amputated left 1st and 2nd toes came in with the concern of left foot wound and found to have the severely elevated RBS with 560. He was admitted for the better blood glucose control and management for the Acute on chronic kidney injury. Plan Plan # Uncontrolled and non-complaince T2DM # Peripheral neuropathy # Left amputated toes w/ suspected cellulitis Vs Osteomyelitis -pt RBS she will be controlled between 140-180 during hospitalization -continue hyper/hypoglycemic protocol with medium dose sliding scale regimen, 5 units of glargine at nighttime and 8 units of lispro after meals. -HGB A1c 11.2 -he was given 2 L of bolus normal saline followed by 1:50 a.m. cc/hours and continue IV fluid -wound care -Ordered to f/up w/ MRI LE # JOHN from possible prerenal- renal tubular stasis -his finances 1.2%, most probably from the renal tubular stasis in prerenal cause -heis baseline creatinine was around 1.1, EGFR was >90 last year -monitor I's and O's, rate of EGFR declining with time -continue IV fluid with 150 mL/hr, daily CMP -avoid using nephrotoxic drugs including pain killer # substance abuse disorder-amphetamine -substance navigator was requested and health care social worker were provided, appreciate -patient did not show any active S/S IE aka did not meet any Deshpande's criteria at the moment -educated about the risks and relationships of the possible consequences from the substance abuse # Hx of HFpEF 60%- not exacerbated # CAD, s/p 4 stents for RCA thrombosis (complicated with history of cardiac arrest and VFib) -not in acute exacerbation -cont home meds after med rec CODE STATUS: Full code DVT prophylaxis: Sc heparin Lines/tubes: Peripheral IV GI prophylaxis: None Nutrition: 75 g carb controlled Prognosis: Guarded Disposition: Continue medical management including blood sugar control, diabetic foot care, IV fluids, substance navigation and health care social worker for substance abuse, PT eval and DC plan with possible discharge tomorrow after MRI LE ruled out OM. Resident attestation: Patient was seen, examined and discussed with attending MD, Dr. Janay FONG MD Internal Medicine Resident, PGY2 [facility] Date of Service: Feb 19, 2025 Billing Provider: SARABJIT AVITIA MD Common Visit Codes: [id number] INP/OBS CARE(HIGH) RUBEN FONG, RES Feb 19, 2025 16:27 SARABJIT AVITIA MD Feb 23, 2025 17:42
[2025-02-19] MEDS: CefTRIAXone/D5W-Rocephin 1gm 50 ML IV ONE (18:10)
--- NOTE | 2025-02-19 18:41 | PROGRESS NOTE- Residence ---
Progress Note - Resident Providers to CC Resident Creating Document: JANE BENNETT, RES ~ Antibiotic Timeout Antibiotic Ordered?: Yes Subjective The patient was seen and examined at bedside today. He has no new complaints. He reported that he is a brittle diabetic and maintains compliance with his insulin. He takes about 17 to 25 units of Lantus, sliding scale Humalog and metformin b.i.d. for his diabetes. Objective Vital Signs Date Time Temp Pulse Resp B/P (MAP) Pulse Ox O2 Delivery O2 Flow Rate FiO2 02/19/25 06:00 98.0 76 16 137/91 (106) 99 Room Air 02/18/25 08:00 0.0 Result Diagram: 02/19/25 0539 02/19/25 0539 Adult male, alert and oriented x4, not in acute distress Head: Normocephalic with an atraumatic Eyes: Pupils- 3mm, reacting to light, conjunctiva- anicteric Nose and throat: No polyps, septum- normal, no mucosal ulcers Neck: Supple, no lymphadenopathy, no carotid bruit Respiratory: No use of accessory muscles of respiration, Bilateral normal vesiscular breath sounds heard. No wheeze, rhochi or creps Cardiac: S1-S2 heard, rhythm regular, no gallop/murmur Abdomen: non distended, no tenderness, no organomegaly, bowel sounds - heard Extremities: Left foot great toe partially amputated, 2nd digit completely amputated, ulcer present with no pus drainage, swelling present Skin: warm and dry, no rash, no purpura Neuro: No focal deficit, gross cranial nerve exam - normal Assessment Assessment A 54 years old male with a past medical history of CAD, s/p four stents for RCA thrombosis (complicated with history of cardiac arrest and VFib), T2 DM with neuropathy, substance abuse history with methamphetamine, s/p amputated left 1st and 2nd toes came in with the concern of left foot wound and found to have the severely elevated RBS with 560. He was admitted for the better blood glucose control and management for the Acute on chronic kidney injury. Plan Plan Left 2nd digit osteomyelitis Status post great toe partial amputation and 2nd digit complete amputation MRI showed subcutaneous edema in the 1st and 2nd digits, suspected osteomyelitis at the base of proximal phalanx of 2nd digit. Infectious diseases, Dr. Baker consulted. Patient is on IV ceftriaxone and vancomycin. Also started the patient on terbinafine cream for topical application. Uncontrolled type 2 diabetes mellitus Brittle diabetic Started the patient on 20 units Lantus, 5 units fixed dose Humalog and medium dose supplemental insulin protocol. HB A1c 11.2. JOHN from possible prerenal- renal tubular stasis Resolved with IV fluids. Continue normal saline at 100 mL/hour. Substance abuse disorder-amphetamines advisory services associate and substance use navigator consulted. Hx of HFpEF 60%- not exacerbated CAD, s/p 4 stents for RCA thrombosis (complicated with history of cardiac arrest and VFib) -not in acute exacerbation -continue metoprolol. CODE STATUS: Full code DVT prophylaxis: Sc heparin Lines/tubes: Peripheral IV GI prophylaxis: None Nutrition: 75 g carb controlled Prognosis: Guarded Disposition: Continue care in medical heredia. Awaiting ID recommendations for osteomyelitis. Jane Bennett MD Internal Medicine Resident, PGY-1 Date of Service: Feb 19, 2025 Billing Provider: SARABJIT AVITIA MD Common Visit Codes: [id number] INP/OBS CARE(HIGH) JANE BENNETT, RES Feb 19, 2025 18:41 SARABJIT AVITIA MD Feb 23, 2025 17:43
[2025-02-19 19:00] VITALS: BP 117/79; PULSE 63; RESP 18; TEMP 97.3; O2SAT 99
[2025-02-19] MEDS: gabapentin 300mg capsule PO SCH (20:03)
[2025-02-19] MEDS: vancomycin/NS 1 GM ADD-VANTAGE 250 ML IV SCH (20:04)
[2025-02-19] MEDS: terbinafine cream 30gm TP SCH (20:07)
[2025-02-19] MEDS: insulin glargine (Lantus) pen - multi-dose SQ SCH (21:31)
[2025-02-19 22:00] VITALS: BP 150/94; PULSE 78; RESP 17; TEMP 97.7; O2SAT 99
[2025-02-20 05:00] VITALS: BP 132/85; PULSE 71; RESP 18; TEMP 96.9; O2SAT 97
[2025-02-20 06:10] LABS: ALBUMIN 2.7 G/DL (3.4-5.0); ANION GAP 7 (8-16); BLOOD UREA NITROGEN 12 MG/DL (7-18); BUN/CREATININE RATIO 12.6 (10.0-20.0); CALCIUM 8.8 MG/DL (8.5-10.1); CHLORIDE 108 MMOL/L (99-107); CREATININE 0.95 MG/DL (0.60-1.10); GLUCOSE 193 MG/DL (70-104); MAGNESIUM 1.9 MG/DL (1.5-2.4); POTASSIUM 3.9 MMOL/L (3.5-5.1); SODIUM 140 MMOL/L (135-145); TOTAL CARBON DIOXIDE 24.7 MMOL/L (24-32); eCRCL 91 ML/MIN; eGFR > 90 ML/MIN
[2025-02-20 07:35] LABS: EOSINOPHILS # (AUTO) 0.1 X10'3 (0-0.9); EOSINOPHILS % (AUTO) 3.2 % (0-6); HEMATOCRIT 44.9 % (42.0-52.0); HEMOGLOBIN 15.3 g/dl (14.0-17.9); LYMPHOCYTES % (AUTO) 43.3 % (21-51); MEAN CORPUSCULAR HEMOGLOBIN 30.6 PG (27.0-31.0); MEAN PLATELET VOLUME 8.1 FL (7.4-10.4); MONOCYTES # (AUTO) 0.6 X10'3 (0-0.9); MONOCYTES % (AUTO) 12.9 % (2-12); NEUTROPHILS # (AUTO) 1.8 X10'3 (1.8-7.7); NEUTROPHILS % (AUTO) 39.6 % (42-75); PLATELET COUNT 276 X10'3 (140-440); RED BLOOD COUNT 4.99 X10'6 (4.70-6.10); RED CELL DISTRIBUTION WIDTH 13.4 % (11.5-14.5); WHITE BLOOD COUNT 4.6 X10'3 (4.5-11.0)
[2025-02-20 08:00] VITALS: RESP 16; O2SAT 100
[2025-02-20] MEDS: CefTRIAXone/D5W-Rocephin 1gm 50 ML IV SCH (08:56)
[2025-02-20 09:04] LABS: C-REACTIVE PROTEIN 0.06 MG/DL (0.0-0.5)
[2025-02-20 10:00] VITALS: BP 151/93; PULSE 97; RESP 16; TEMP 97.6; O2SAT 100
--- NOTE | 2025-02-20 14:04 | RADIOLOGY REPORT ---
CLINICAL INDICATION: cellulitis TECHNIQUE: Left DI FOOT, COMPLETE (3VW MIN) Comparison: None FINDINGS/IMPRESSION: : There is no evidence of acute fracture or dislocation. Post surgical resection of the distal 1st and 2nd digit. Diffuse subcutaneous soft-tissue edema and swelling.
--- NOTE | 2025-02-20 14:16 | VASCULAR REPORT ---
EXAM: VASC VL ARTERIAL HISTORY: Left lower extremity pain COMPARISON: None TECHNIQUE: Real-time grayscale and color Doppler images of the left lower extremity were obtained wit h spectral waveform analysis. Findings: Arterial peak systolic velocities reported in units of centimeters per second (cm/sec): MARSHAL not performed due to pedal atherosclerosis. Left side: Common femoral - 57 Profunda - 60 Proximal SFA - 71 Mid SFA - 68 Distal SFA - 52 Popliteal - 48 Peroneal - 25 Posterior tibial - 51 Anterior tibial - 38 Diffuse multiphasic waveforms with the exception of the which are monophasic. Mild atherosclerosis. IMPRESSION: 1. No evidence of hemodynamically significant stenosis throughout the left lower extremity arterial s ystem.
--- NOTE | 2025-02-20 17:03 | PROGRESS NOTE- Residence ---
Progress Note - Resident Providers to CC Resident Creating Document: JANE BENNETT, RES ~ Antibiotic Timeout Antibiotic Ordered?: Yes Subjective The patient was seen and examined at bedside today. He has no new complaints. He was concerned that his MRI showed features of osteomyelitis. He said he tried to contact the doctors but no one returned his phone call for follow up after his amputation. He underwent great toe amputation in July and 2nd digit amputation towards end of December. Dr. Baker and Dr. Teran consulted. Objective Vital Signs Date Time Temp Pulse Resp B/P (MAP) Pulse Ox O2 Delivery O2 Flow Rate FiO2 02/20/25 10:00 97.6 97 16 151/93 (112) 100 Room Air 02/20/25 08:00 0.0 Result Diagram: 02/20/25 0659 02/20/25 0457 Adult male, alert and oriented x4, not in acute distress Head: Normocephalic with an atraumatic Eyes: Pupils- 3mm, reacting to light, conjunctiva- anicteric Nose and throat: No polyps, septum- normal, no mucosal ulcers Neck: Supple, no lymphadenopathy, no carotid bruit Respiratory: No use of accessory muscles of respiration, Bilateral normal vesiscular breath sounds heard. No wheeze, rhochi or creps Cardiac: S1-S2 heard, rhythm regular, no gallop/murmur Abdomen: non distended, no tenderness, no organomegaly, bowel sounds - heard Extremities: Left foot great toe partially amputated, 2nd digit completely amputated, ulcer present with no pus drainage, swelling present Skin: warm and dry, no rash, no purpura Neuro: No focal deficit, gross cranial nerve exam - normal Assessment Assessment A 54 years old male with a past medical history of CAD, s/p four stents for RCA thrombosis (complicated with history of cardiac arrest and VFib), T2 DM with neuropathy, substance abuse history with methamphetamine, s/p amputated left 1st and 2nd toes came in with the concern of left foot wound and found to have the severely elevated RBS with 560. He was admitted for the better blood glucose control and management for the Acute on chronic kidney injury. Plan Plan Left 2nd digit osteomyelitis Status post great toe partial amputation and 2nd digit complete amputation MRI showed subcutaneous edema in the 1st and 2nd digits, suspected osteomyelitis at the base of proximal phalanx of 2nd digit. Infectious diseases, Dr. Baker and physical therapist, Dr. Teran consulted. X-ray foot and arterial ultrasound ordered as per Dr. Teran's recommendations Patient is on IV ceftriaxone and vancomycin. Also started the patient on terbinafine cream for topical application. Uncontrolled type 2 diabetes mellitus Brittle diabetic Started the patient on 20 units Lantus, 5 units fixed dose Humalog and medium dose supplemental insulin protocol. HB A1c 11.2. JOHN from possible prerenal- renal tubular stasis Resolved with IV fluids. Continue normal saline at 100 mL/hour. Substance abuse disorder-amphetamines visitor services specialist and substance use navigator consulted. Hx of HFpEF 60%- not exacerbated CAD, s/p 4 stents for RCA thrombosis (complicated with history of cardiac arrest and VFib) Not in acute exacerbation Continue metoprolol. CODE STATUS: Full code DVT prophylaxis: Sc heparin Lines/tubes: Peripheral IV GI prophylaxis: None Nutrition: 75 g carb controlled Prognosis: Guarded Disposition: Continue care in medical heredia. Awaiting ID and Podiatry recommendation for osteomyelitis. Jane Bennett MD Internal Medicine Resident, PGY-1 Date of Service: Feb 20, 2025 Billing Provider: SARABJIT AVITIA MD Common Visit Codes: [id number] INP/OBS CARE(HIGH) JANE BENNETT, RES Feb 20, 2025 17:03 SARABJIT AVITIA MD Feb 23, 2025 17:43
[2025-02-20 18:00] VITALS: BP 143/94; PULSE 75; RESP 16; TEMP 97.3; O2SAT 100
[2025-02-20 22:00] VITALS: BP 124/81; PULSE 73; RESP 20; TEMP 97.2; O2SAT 100
[2025-02-20] MEDS: dextrose 50%-water 50ml dispensing syringe IV PRN (23:15)
[2025-02-21 06:00] VITALS: BP 146/91; PULSE 60; RESP 16; TEMP 97.2; O2SAT 100
[2025-02-21 06:05] LABS: BASOPHILS % (AUTO) 0.8 % (0-1); EOSINOPHILS # (AUTO) 0.1 X10'3 (0-0.9); EOSINOPHILS % (AUTO) 2.6 % (0-6); HEMATOCRIT 44.8 % (42.0-52.0); HEMOGLOBIN 15.1 g/dl (14.0-17.9); LYMPHOCYTES % (AUTO) 37.2 % (21-51); MEAN CORPUSCULAR HEMOGLOBIN 30.1 PG (27.0-31.0); MEAN CORPUSCULAR HGB CONC 33.8 g/dL (33.0-36.5); MEAN PLATELET VOLUME 8.3 FL (7.4-10.4); MONOCYTES # (AUTO) 0.5 X10'3 (0-0.9); MONOCYTES % (AUTO) 8.5 % (2-12); NEUTROPHILS # (AUTO) 2.7 X10'3 (1.8-7.7); NEUTROPHILS % (AUTO) 50.9 % (42-75); PLATELET COUNT 275 X10'3 (140-440); RED BLOOD COUNT 5.03 X10'6 (4.70-6.10); RED CELL DISTRIBUTION WIDTH 13.5 % (11.5-14.5); WHITE BLOOD COUNT 5.4 X10'3 (4.5-11.0)
[2025-02-21 06:27] LABS: ALBUMIN 2.7 G/DL (3.4-5.0); ANION GAP 8 (8-16); BLOOD UREA NITROGEN 16 MG/DL (7-18); BUN/CREATININE RATIO 19.8 (10.0-20.0); CHLORIDE 107 MMOL/L (99-107); CREATININE 0.81 MG/DL (0.60-1.10); GLUCOSE 197 MG/DL (70-104); MAGNESIUM 1.7 MG/DL (1.5-2.4); POTASSIUM 4.1 MMOL/L (3.5-5.1); SODIUM 142 MMOL/L (135-145); TOTAL CARBON DIOXIDE 27.2 MMOL/L (24-32); eCRCL 107 ML/MIN; eGFR > 90 ML/MIN
[2025-02-21 08:00] VITALS: RESP 17; O2SAT 98
[2025-02-21 10:00] VITALS: BP 160/87; PULSE 78; RESP 16; TEMP 97.8; O2SAT 96
--- NOTE | 2025-02-21 12:07 | CONSULTATION REPORT ---
Consult Consult Consultation Reason for Consult: Toe osteo Consulting Provider: Dr. Tobias Antibiotic Days: Vanc 2, Rocephin 2 Lines: PIV Micro: 02/17 Blood- ngtd HPI: Patient is a 54 year old male with past medical history of substance abuse, DM (A1c 11.2) who [facility] due to concern over the appearance of a wound on his L foot. He reports having undergone amputation of the 2nd toe about 6 weeks ago after which he both had difficulty following up with Dr. Nicole's office (sutures out in the ER) and he walked on it contradictory to his instructions (he says it was too important that he attend his mental health meetings). He subsequently noticed an area of his wound open up. The primary team says that on admission it was draining quite a bit. He was admitted and given IV Vanc, Rocephin which already seems to have helped already. MRI however, did enhance at the amputation site and was read by the radiologist as osteomyelitis. ID is asked to consult for further recs. On today's exam, patient is not ready to commit to IV therapy (he hopes his issue is from walking on it). He says he is living at a hotel and pursuing sober living (hence attending his meetings). He is willing to follow up in clinic or wound care Past Medical/Surgical History: CHF, CAD s/p PCI, DM with neuropathy, OM s/p amputation of big toe in July last year, amputation of 2nd toe a month ago, ankle fracture repair Current Medications Medications (Trade) Dose Ordered Sig/Maribell Route PRN Reason Start Time Stop Time Status Last Admin Dose Admin Sodium Chloride (sodium chloride 1000ml IV soln) 2,000 ml ONCE ONCE IVB 02/16/25 22:15 02/16/25 22:17 DC 02/16/25 22:36 2,000 ML Insulin Human Regular (HumuLIN R 10 units per 0.1 ML syringe) 10 units ONCE ONCE IV 02/16/25 22:35 02/17/25 08:15 DC 02/17/25 00:45 10 UNITS Heparin Sodium (Porcine) (heparin, porcine 5000 unit/ ml 1ml vial) 5,000 unit Q12H SQ 02/17/25 08:00 02/21/25 07:18 5,000 UNIT Ondansetron HCl (Zofran 4mg/2ml vial) 4 mg Q6H PRN IV nausea/vomiting 02/17/25 02:15 02/18/25 17:58 4 MG Docusate Sodium (Colace capsule) 100 mg BID PO 02/17/25 08:00 02/19/25 20:03 100 MG Sodium Chloride 1,000 ml @ 100 mls/hr Q10H IV 02/17/25 02:15 02/21/25 03:39 100 MLS/HR Atorvastatin Calcium (Lipitor tablet) 80 mg DAILY PO 02/17/25 08:00 02/21/25 07:17 80 MG Venlafaxine HCl (Effexor XR capsule) 225 mg QAM PO 02/17/25 08:00 02/21/25 07:17 225 MG Metoprolol Succinate (Toprol XL (24-hour) tablet) 50 mg DAILY PO 02/17/25 08:00 02/21/25 07:17 50 MG Insulin Glargine (Lantus inj) 5 unit HS SQ 02/17/25 21:00 02/19/25 09:13 DC 02/18/25 21:40 5 UNIT Insulin Human Lispro (Humalog Kwikpen U-100 (100 Unit/ ml) 3ml) 8 unit PC SQ 02/17/25 09:00 02/19/25 12:26 DC 02/19/25 09:29 8 UNIT Insulin Human Lispro (Humalog Kwikpen U-100 (100 Unit/ ml) 3ml) SUPPLEMENTAL INSULIN To ... ACHS SQ 02/17/25 12:00 02/21/25 08:40 1 UNIT Dextrose (dextrose 50%-water syringe) 25 ml Q15M PRN IV Mild to Moderate Hypoglycemia 02/17/25 08:20 02/20/25 23:15 25 ML Iron/Minerals/ Multivitamins (Centrum Multivit-Mineral Liq) 15 ml DAILY PO 02/18/25 08:00 02/21/25 07:17 15 ML Folic Acid (folic acid tablet) 1 mg DAILY PO 02/18/25 08:00 02/21/25 07:17 1 MG Cyanocobalamin (Vitamin B-12 tablet) 500 mcg DAILY PO 02/18/25 08:00 02/21/25 07:17 500 MCG Enteral Nutritional Formula (SHAHBAZ Smoothie Arginine/glutam/ Ca2+Bmb) 1 cup BIDBD PO 02/17/25 17:30 02/21/25 07:30 1 CUP Acetaminophen (Tylenol tablet) 650 mg Q6H PRN PO pain 02/18/25 11:10 02/21/25 08:42 650 MG Insulin Glargine (Lantus inj) 20 unit HS SQ 02/19/25 21:00 02/20/25 23:45 DC 02/20/25 21:03 20 UNIT Gabapentin (Neurontin capsule) 300 mg Q8H PO 02/19/25 16:00 02/21/25 07:17 300 MG Gabapentin (Neurontin capsule) 300 mg ONCE ONCE PO 02/19/25 10:40 02/19/25 10:41 DC 02/19/25 11:29 300 MG Insulin Human Lispro (Humalog Kwikpen U-100 (100 Unit/ ml) 3ml) 5 unit PC SQ 02/19/25 13:00 02/21/25 07:32 DC 02/20/25 17:48 5 UNIT Ceftriaxone Sodium 50 ml @ 100 mls/hr ONCE ONCE IV 02/19/25 16:25 02/19/25 16:54 DC 02/19/25 18:10 100 MLS/HR Ceftriaxone Sodium 50 ml @ 100 mls/hr DAILY IV 02/20/25 08:00 02/21/25 07:18 100 MLS/HR Vancomycin HCl 250 ml @ 166 mls/hr Q12H@0400,1600 IV 02/19/25 16:28 02/21/25 03:39 166 MLS/HR Terbinafine HCl (LamISIL Cream) 1 applic BID TP 02/19/25 20:00 02/21/25 08:36 1 APPLIC Social History: As in HPI Family History: Noncontributory ROS: As in HPI, otherwise negative Objective: Vitals: Afebrile, 73, 20, 124/81, 100% on RA General: Alert, NAD HEENT: NC/AT, normal conjunctiva, no oral lesions CV: Regular Resp: Clear anteriorly Abd: Soft, nontender, nondistended Ext: L foot with well healed partial great toe amputation and healing 2nd toe infection. There is a shallow wound there (no exposed bone) with surrounding hyperpigmentation and no excess warmth Lines: PIV ok Laboratory Tests 02/21/25 05:27 06/07 MRI 1. Postsurgical changes of prior amputations of the 1st and 2nd digits as described above. 2. Subcutaneous edema in the 1st and 2nd digits, greater in the 2nd digit, near the amputation stumps, may correlate with reported clinical history of cellulitis in the appropriate clinical setting. No organized fluid collection identified to suggest abscess, although limited evaluation for abscess on noncontrast enhanced exam. 3. Marrow signal abnormality of the base of the proximal phalanx of the 2nd digit, suspicious for osteomyelitis in the setting of overlying soft tissue infection. Assessment: // L 2nd toe amputation site cellulitis - MRI did show enhancement of the underlying bone but he says he is 6 weeks out from his surgery which makes it difficult to distinguish infection from a healing surgical site. No cultures were obtained but he already responded well to IV Vanc/Rocephin // DM, A1c 11.2 // Substance abuse, patient does have a history of IV use // Antibiotic Allergies: none known // MRSA Screen: negative Plan: - 2 options discussed with patient. We could go ahead and treat as osteomyelitis today but he is not that eager to have a PICC line and to manage it in his hotel room. He prefers to treat for now as a skin infection, in which case I recommend a week of Augmentin/Doxycycline. He was told what to watch out for in the event that the bone is infected and he will call my office for re- evaluation if a new wound opens up or if his current wound does not heal as expected. - Wound care - Thank you for the consult, will continue to follow YANNICK BOYER DO Feb 21, 2025 12:07
[2025-02-21] MEDS ORDERED: DOXY50TA3 PO (12:47)
[2025-02-21] MEDS ORDERED: FOLI1TAB27 PO (12:47)
[2025-02-21] MEDS ORDERED: LACT1CAP26 PO (12:47)
[2025-02-21] MEDS ORDERED: AMOX1TAB15 PO (12:47)
[2025-02-21] MEDS ORDERED: LANTUS SQ (12:47)
[2025-02-21] MEDS ORDERED: VANCOMYCIN LEVEL IV ONE (15:30)
--- NOTE | 2025-02-21 16:41 | DISCHARGE SUMMARY-Residence ---
Discharge Summary Providers to CC Resident Creating Document: CHANDA BENNETT, MARLENE ~ Discharge Summary Admission Diagnosis: Jose, hYPERGLYCEMIA Hospital Course DATE OF ADMISSION: 02/16/2025 DATE OF DISCHARGE: 02/21/2025 Condition on DC: Stable Date of Service: Feb 21, 2025 Billing Provider: SARABJIT AVITIA MD, SOWMYA MANJARI, MARLENE Feb 21, 2025 16:41
[2025-02-21] MEDS ORDERED: insulin glargine (Lantus) pen - multi-dose SQ SCH ×2 (21:00)
--- NOTE | 2025-02-23 17:43 | Visit Coding Note ---
Date of Service: Feb 18, 2025 Billing Provider: SARABJIT AVITIA MD Common Visit Codes: [id number] INP/OBS CARE(HIGH) SARABJIT AVITIA MD Feb 23, 2025 17:43
== END 2025-02-21 14:31 | disposition home or self-care (01) | DRG 349 ==
LOC: ER 17:53 → ED HOLD 22:42 → ORTHO 4S 02-17 06:55
PROVIDERS: ADMIT Internal Medicine; ATTEND Internal Medicine
DX: T87.44 Infection of amputation stump, left lower extremity (principal); N17.9 Acute kidney failure, unspecified; E11.40 Type 2 diabetes mellitus with diabetic neuropathy, unspecified; M86.8X7 Other osteomyelitis, ankle and foot; I50.32 Chronic diastolic (congestive) heart failure; E11.65 Type 2 diabetes mellitus with hyperglycemia; L03.032 Cellulitis of left toe; I11.0 Hypertensive heart disease with heart failure; F15.90 Other stimulant use, unspecified, uncomplicated; F41.9 Anxiety disorder, unspecified; F32.A Depression, unspecified; I25.10 Atherosclerotic heart disease of native coronary artery without angina pectoris; Y92.89 Other specified places as the place of occurrence of the external cause; Y83.5 Amputation of limb(s) as the cause of abnormal reaction of the patient, or of later complication, without mention of misadventure at the time of the procedure; Z98.61 Coronary angioplasty status; F17.210 Nicotine dependence, cigarettes, uncomplicated; Z86.74 Personal history of sudden cardiac arrest
CPT/HCPCS: 36415; 73630; 73718; 80048; 80061; 80305; 81001; 81003; 82570; 82948; 83036; 83605; 83735; 83880; 83930; 83935; 84132; 84145; 84300; 84443; 84484; 85025; 85651; 86140; 87040; 87081; 93306; 93926; 96360; 99285; A6209; A6250; A6258; G0378; J0696; J1644; J1815; J2405; J3370; J3490; J7030

== ENCOUNTER 2025-08-09 14:50 | Inpatient (IN) | payer MEDICAID ==
[~2025-08-09] VITALS: Ht 175.3 cm; Wt 69.0 kg
[~2025-08-09 14:50] MED LIST changes: +AMOX1TAB15 PO; -CLOP75TA34 PO; +DOXY50TA3 PO; +FOLI1TAB27 PO; +INSU100I8 SQ; -INSU100V56 SQ; +LACT1CAP26 PO; +LANTUS SQ; -MIRT-142 PO; +SPIR25TA5 PO; +VENL75CA61 PO
--- NOTE | 2025-08-09 15:21 | Physician Documentation ---
History of Present Illness CC: LEOBARDO RUIZ MD ~ Chief Complaint: Mental Health Eval Stated Complaint: MH Time Seen by MD: 15:13 Primary Medical Doctor: NONE HPI 55 M with history of DM 2 and suicidal ideation in the past presents to the ED via EMS after his Mental health senior hr manager found him in his room hallucinating and with thoughts of harming himself. She [CM] has been trying to reach him for the past 4 days, with no response. He has been living in a hotel for the last 2 months. As there was no response from him she went to check on him and he was found to be depressed in his room, thoughts of harming cutting his wrist with a razor blade. He is a diabetic and uses insulin [does not remember how much insulin], hasn't been taking any of his meds for the last 4 days. His sugars today are 499, hasn't been eating anything as well. States " i want to kill myse lf, i have a plan, using the razor blade" He has tried to commit suicide in the past and was also on 5250 HOLD in the past. Complaints of numbness in his feet, and weakness. No other complaints. Presents With: Reports: depression, other Ideation: suicidal Plan: other Hallucinations: other History Of: previous 5150, suicide attempt Complying with Medications?: No Severity: able to care for self Medication Reconciliation Allergies: Coded Allergies: No Known Allergies (Unverified , 08/09/25) Scheduled Aspirin (Aspirin EC), 1 TAB PO DAILY, (Reported) Folic Acid* (Folic Acid*), 1 MG PO DAILY Gabapentin (Neurontin), 1 CAP PO TID, (Reported) Insulin Glargine,Hum.rec.anlog* (Lantus*), 25 UNIT SQ HS Metoprolol Succinate (Metoprolol Succinate), 50 MG PO DAILY Spironolactone (Spironolactone), 0.5 TAB PO DAILY, (Reported) Venlafaxine Hcl (Venlafaxine Hcl Er), 3 CAP PO QAM, (Reported) Scheduled PRN Hydroxyzine Hcl* (Atarax*), 1-2 TAB PO BID PRN for insomnia, (Reported) Miscellaneous Medications Insulin Lispro (Humalog), 8-11 UNITS SQ, (Reported) Discontinued Medications Amoxicillin/Potassium Clav (Amox Tr-K Clv 500-125 mg Tab), 1 TAB PO Q12H Discontinued Reason: patient no longer taking Atorvastatin Calcium (Atorvastatin Calcium), 80 MG PO DAILY Discontinued Reason: patient no longer taking Doxycycline Monohydrate (Doxycycline Monohydrate), 1 TAB PO Q12H Discontinued Reason: patient no longer taking Lactobacillus Rhamnosus (Culturelle), 1 CAP PO BID Discontinued Reason: patient no longer taking Past Medical History Past Medical History: Coronary Artery Disease, Hypertension, Diabetes, Anxiety, Depression Past Surgical History: noncontributory Patient History: FH: congestive heart failure FATHER, , Onset:50's - 60 brother, Onset: - 60 brother, Onset: FH: diabetes mellitus MOTHER, , Onset: Alcohol Use: Occasionally Drug Use: methamphetamine Lives with: Family Lives In: Home Review of Systems ROS Reviewed in full, except pertient positives in HPI. Physical Exam Vital Signs: Temperature: 97.7, Source: Oral, Heart Rate: 100, Respiratory Rate: 20, BP: 112/61, Pulse Oximetry: 100, Weight: 69.090 Oxygen Flow Rate: 0 Physical Exam General: Awake and alert, no acute distress HEENT: EOM intact, SARAH. Mucous membranes dry. Resp: Equal BS bilaterally CVS: Normal S1 S2 no murmurs Abdomen: Soft, normal BS x4, No organomegaly. No guarding or rigidity Extremities: Normal ROM. No edema, cyanosis or clubbing, Skin: Warm and dry Psych: Suicidal, Hallucinations present. Progress Results/Orders Results/Orders Vital Signs 08/09/25 08/09/25 08/09/25 15:02 18:24 20:24 Temp 97.7 97.7 Pulse 100 104 Resp 20 16 B/P (MAP) 112/61 107/78 (88) Pulse Ox 100 100 O2 Flow Rate 0 0 Laboratory Tests Test 08/09/25 15:12 08/09/25 15:20 08/09/25 15:24 08/09/25 17:38 Glucometer 499 *H White Blood Count 6.8 Red Blood Count 5.34 Hemoglobin 16.1 Hematocrit 46.3 Mean Corpuscular Volume 86.7 Mean Corpuscular Hemoglobin 30.1 Mean Corpuscular Hemoglobin Concent 34.7 Red Cell Distribution Width 13.5 Platelet Count 310 Mean Platelet Volume 8.4 Neutrophils (%) (Auto) 54.4 Lymphocytes (%) (Auto) 37.0 Monocytes (%) (Auto) 6.6 Eosinophils (%) (Auto) 0.9 Basophils (%) (Auto) 1.1 H Neutrophils # (Auto) 3.7 Lymphocytes # (Auto) 2.5 Monocytes # (Auto) 0.5 Eosinophils # (Auto) 0.1 Basophils # (Auto) 0.1 CBC Comment Sodium Level 133 L Potassium Level 4.2 Chloride Level 98 L Carbon Dioxide Level 28.1 Anion Gap 7 L Blood Urea Nitrogen 15 Creatinine 1.45 H Estimated GFR/1.73 m2 61 BUN/Creatinine Ratio 10.3 Glucose Level 504 *H Hemoglobin A1c > 12.0 H Calcium Level 8.8 Albumin 3.0 L Thyroid Stimulating Hormone (TSH) 0.71 Chemistry Comments Ethyl Alcohol Level < 10 SARS-CoV-2 Antigen (Rapid) Negative Urine Specimen Description Cln catch midstream Urine Color Yellow Urine Clarity Clear Urine pH 6.0 Urine Specific [place] <=1.005 Urine Protein Negative Urine Glucose (UA) >=1000 H Urine Ketones 15 H Urine Occult Blood Negative Urine Nitrite Negative Urine Bilirubin Negative Urine Urobilinogen 0.2 Urine Leukocyte Esterase Negative Urine RBC 0-2 Urine WBC 0-4 Urine Squamous Epithelial Cells Few Urine Bacteria None seen Volume Urine Centrifuged 10 ml Urine Comment Urine Opiates Screen Negative Urine Methadone Screen Negative Urine Fentanyl Screen Negative Urine Barbiturates Screen Negative Urine Phencyclidine Screen Negative Urine Amphetamines Screen Positive Urine Benzodiazepines Screen Negative Urine Cocaine Screen Negative Urine Cannabinoids Screen Positive Drug Screen Comment Test 08/09/25 18:09 08/09/25 21:44 08/10/25 07:04 Glucometer 356 H 291 H Potassium Level 3.7 Creatinine 1.19 H Estimated GFR/1.73 m2 77 Medical Decision Making Additional information obtaine: other Findings Patient was treated for hyperglycemia in his now medically cleared for mental health evaluation Differential Dx:Considerations: Include: Depression, Suicidal, Other Departure Impression: Primary Impression: Suicidal ideation Additional Impressions: Hyperglycemia Diabetes mellitus type 2 in nonobese Medical non-compliance Additional Instructions: Transfer orders for [facility]: At this time there is no evidence of an emergent medical condition that would preclude (admission/transfer) to a psychiatric unit via [facility] protocol for further psychiatric, as well as medical evaluation and treatment. At this time I have no reason to believe that transfer via [facility] would have serious medical compromise in the patient's health. Referrals: NO PRIMARY CARE PROVIDER (PCP) Signature Scribe Signature: NA Attestation: MD HARDY Houston ELIZABETH, RES Aug 09, 2025 15:21 LEYLA HELLER NP Aug 09, 2025 17:26 LEOBARDO RUIZ MD Aug 10, 2025 07:17
[2025-08-09 15:31] LABS: MEAN PLATELET VOLUME 8.4 FL (7.4-10.4)
[2025-08-09 15:33] LABS: RED CELL DISTRIBUTION WIDTH 13.5 % (11.5-14.5)
[2025-08-09 15:53] LABS: CREATININE 1.45 MG/DL (0.60-1.10); ETHANOL < 10 MG/DL (<10); TOTAL CARBON DIOXIDE 28.1 MMOL/L (24-32); eCRCL 57 ML/MIN; eGFR 61 ML/MIN
[2025-08-09] MEDS: insulin regular, human 10 units/0.1 ml syringe SQ ONE ×2 (16:27→18:03)
[2025-08-09] MEDS: normal saline 1000ml 1,000 ML IV ONE (16:27)
--- NOTE | 2025-08-09 17:07 | ELECTROCARDIOGRAPH REPORT ---
[facility] Test Date: 2025-08-09 Test Time: 15:09:41 Pat Name: SUSHMA ESPITIA Department: EMERGENCY ROOM Room: Gender: M Personalized Living Manager Nurse: : 1970 Requested By: DEPARTMENT EMERGENCY Order Number: [id number] Reading MD: Dr. Slade Cochran Measurements Intervals [place] Rate: 96 P: 81 VA: 146 QRS: 78 QRSD: 88 T: 73 QT: 338 QTc: 428 Interpretive Statements Sinus rhythm ST elev, probable normal early repol pattern Electronically Signed On 08-09-2025 19:08:[address] Slade Cochran Please click the below link to view image of tracing.
[2025-08-09 17:50] LABS: LEUKOCYTE ESTERASE ,URINE NEGATIVE (Neg); NITRITES, URINE NEGATIVE (Neg); OCCULT BLOOD,URINE NEGATIVE (Neg)
[2025-08-09 17:55] LABS: UA COLLECTION TYPE CLN CATCH MIDSTREAM
[2025-08-09 17:56] LABS: SQUAMOUS EPITHELIAL CELL,UR FEW /LPF (FEW)
[2025-08-09] MEDS: ringers solution, lacted 1,000 ML IV ONE (18:04)
[2025-08-09 18:34] LABS: URINE AMPHETAMINE SCREEN POSITIVE (Neg); URINE BARBITUATE SCREEN NEGATIVE (Neg); URINE BENZODIAZEPINES SCREEN NEGATIVE (Neg); URINE CANNABINOID SCREEN POSITIVE (Neg); URINE COCAINE SCREEN NEGATIVE (Neg); URINE METHADONE SCREEN NEGATIVE (Neg); URINE OPIATE SCREEN NEGATIVE (Neg); URINE PHENCYCLIDINE SCREEN NEGATIVE (Neg)
[2025-08-09] MEDS ORDERED: ASPI-1397 PO (19:53)
[2025-08-09] MEDS ORDERED: HYDR-3717 PO (19:53)
[2025-08-09] MEDS ORDERED: GABA300T28 PO (19:53)
[2025-08-09] MEDS ORDERED: HYDROcodone/acetaminophen 10/325mg tab PO ONE (20:50)
[2025-08-09] MEDS ORDERED: GABA300C PO (21:06)
[2025-08-09] MEDS ORDERED: DEXTROSE 15 GM of carb/4 tabs (each vial/BOTTLE has 4 tablets) PO PRN ×2 (21:20)
[2025-08-09] MEDS ORDERED: dextrose 50%-water 50ml dispensing syringe IV PRN ×2 (21:20)
[2025-08-09] MEDS ORDERED: glucagon, human recombinant 1mg kit SUBCUT PRN (21:20)
[2025-08-09] MEDS: insulin glargine (Lantus) pen - multi-dose SQ SCH (21:31)
[2025-08-09 22:01] LABS: CREATININE 1.19 MG/DL (0.60-1.10); eCRCL 69 ML/MIN; eGFR 77 ML/MIN
[2025-08-10] MEDS: venlafaxine XR 75mg capsule (Q24H) PO SCH (08:42)
[2025-08-10] MEDS: aspirin 81mg, enteric-coated 1 TAB TABLET.DR PO SCH (08:42)
[2025-08-10] MEDS: INSULIN LISPRO 100 UNIT/ML INSULN.PEN MULTI-DOSE SQ SCH (08:44)
[2025-08-11 04:30] VITALS: BP 80/56; PULSE 102; RESP 20; TEMP 97.9; O2SAT 100
[2025-08-11] MEDS ORDERED: magnesium hydroxide 30ml (MOM) UD suspension PO PRN (05:20)
[2025-08-11] MEDS ORDERED: loperamide 2mg capsule PO PRN (05:20)
[2025-08-11] MEDS ORDERED: mag hydrox/Alum hydrox/simeth 30ml oral suspension PO PRN (05:20)
[2025-08-11 07:00] VITALS: BP 126/73; PULSE 87; RESP 16; TEMP 98; O2SAT 99
[2025-08-11 07:30] VITALS: RESP 16
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
[2025-08-11] MEDS ORDERED: RISP-31 PO (13:55)
[2025-08-11] MEDS ORDERED: ATOR-429 PO (13:55)
--- NOTE | 2025-08-11 18:29 | HISTORY AND PHYSICAL-Residence ---
History & Physical Providers to CC Resident Creating Document: SANDRASYLVIA MARLENE ~ History of Present Illness Primary Medical Doctor: NONE Reason for Admit\Complaint: Suicide ideation History of Present Illness This is a 53-year-old man with past medical history of type 2 diabetes, insulin dependent complicated with diabetic retinopathy, toe amputation secondary to diabetic foot ulcer currently being admitted in Mental Health for suicidal ideation. He had not taken his insulin for 4 days before admission. Currently his blood sugars are trending in 250s. We will continue maintain the same dose of insulin. No other systemic complaints. Allergies: Coded Allergies: No Known Allergies (Unverified , 08/09/25) Home Medications Home Medications Active Folic Acid* (Folic Acid) Y Tab 1 Mg PO DAILY 30 Days Lantus* (Insulin Glargine) 100 Unit/1 Ml Vial 25 Unit SQ HS 30 Days Metoprolol Succinate 50 Mg Tab.sr.24h 50 Mg PO DAILY 90 Days Reported Lipitor* (Atorvastatin Calcium) 80 Mg Tablet 1 Tab PO DAILY Risperidone 1 Mg Tablet 1 Tab PO BID 30 Days Neurontin (Gabapentin) 300 Mg Capsule 1 Cap PO TID 30 Days Aspirin EC (Aspirin) 81 Mg Tablet.dr 1 Tab PO DAILY Atarax* (Hydroxyzine HCl) 10 Mg Tablet 1-2 Tab PO BID PRN Spironolactone 25 Mg Tablet 0.5 Tab PO DAILY Humalog (Insulin Lispro) 100 Unit/Ml Insuln.pen 8-11 Units SQ Venlafaxine Hcl Er (Venlafaxine Hcl) 75 Mg Cap.sr.24h 3 Cap PO QAM Past Medical History Past Medical History Type 2 diabetes, insulin dependent complicated with diabetic retinopathy and toe amputation secondary to diabetic foot ulcer CAD due to drug use, undergone PCI twice Meth use disorder Past Surgical History Surgical History Comment Left toe amputation due to diabetic foot ulcer Family History Family History: FH: congestive heart failure FATHER, , Onset:50's - 60 brother, Onset:50's - 60 brother, Onset:50's - 60 FH: diabetes mellitus MOTHER, , Onset:30's - 40 Past Social History Alcohol Use: Occasionally Drug Use: Methamphetamine Lives with: Family Lives In: Home Exam Vitals: Vital Signs Date Time Temp Pulse Resp B/P (MAP) Pulse Ox O2 Delivery O2 Flow Rate FiO2 08/11/25 08:19 103 08/11/25 07:30 16 Room Air 08/11/25 07:00 98.0 126/73 (90) 99 08/10/25 19:00 0 General: General: Well alert, well oriented, not confused, not agitated, not in acute distress, well cooperated during the physical. HEENT: Conjunctive are pink, sclerae clear, no icterus, pupil is equal in both sides, reactive to light, no ear discharge, no pharyngeal erythema or an edema. Neck: Supple, no JVD, no lymphadenopathy and thyromegaly. Chest: Equal air entry on both lungs, no added sounds, no wheeze. Cardiovascular: S1-S2 regular sinus rhythm and, regular rate, no gallops, no rubs, no murmurs Abdomen: No visible peristalsis, Bowel sounds present on auscultation, soft, nontender, no guarding, no rigidity Extremities: Left toes amputated, no pitting edema bilaterally, capillary refill intact, peripheral pulsations are intact on both sides Central Nervous System: No focal neurological deficits, no motor or sensory weakness in all 4 extremities, could move all 4 extremities, 2+ deep tendon reflexes, negative Babinski. Musculoskeletal: No joint swelling, deformities, inflammations, and no scoliosis and back tenderness Skin: Warm and dry. Diagnostic Data Last Recorded Lab Results: 08/09/25 1520 08/09/25 2144 Counseling Services Smoking & Tobacco Cessation: > 10 Minutes Advance Care Planning Advanced Care planning: N/A Additional Plan Plan: Type 2 diabetes, insulin dependent, noncompliant with medications Hemoglobin A1c 12 Patient on insulin glargine 20 units HS subcutaneous, insulin lispro 5 units subcutaneous. Blood sugars in the range of 250s to 80s Continue same dosage 75 g Carb controlled diet CAD due to drug use status post PCI Continue home medication aspirin 81 mg p.o. daily, atorvastatin 80 mg p.o. daily and spironolactone 12.5 mg p.o. daily. Suicidal ideation and hallucinations Managed as per [facility] Sylvia Mayers, Internal Medicine, PGY 1 [facility] Date of Service: Aug 11, 2025 Billing Provider: RODOLFO MCCALLUM MD Common Visit Codes: [id number] INP/OBS CARE (HIGH) SYLVIA MAYERS, MARLENE Aug 11, 2025 18:29 RODOLFO MCCALLUM MD Aug 12, 2025 06:42
[2025-08-11 19:00] VITALS: RESP 16; O2SAT 100
[2025-08-11 20:00] VITALS: BP 113/73; PULSE 93; RESP 16; TEMP 98; O2SAT 99
[2025-08-12 05:50] VITALS: BP 74/54; O2SAT 100
[2025-08-12 05:55] VITALS: BP 72/56
[2025-08-12 07:30] VITALS: BP 108/68; PULSE 82; RESP 14; TEMP 97.3; O2SAT 100
[2025-08-12 07:37] LABS: CHOL/HDL RATIO 4.3 (0.00-4.99)
[2025-08-12 08:15] LABS: LDL CHOLESTEROL 107 MG/DL (50-100)
--- NOTE | 2025-08-12 17:40 | PROGRESS NOTE ---
Progress Note Dictate Providers to CC ~ Progress Note: Admission date: 08/11/25 Status: 5150 CC: "depression" HPI: Admitted on 5150 for danger to self, suicidal ideation with intent, no specific plan. that command suicide. Stopped eating and taking his prescribed medication. States he has been suffering from depression for the past few months, contributing factors: "holidays, lack of family. Feels like everything in life is just going wrong for him. States this has been a new/thought/feeling ex. With his relationships is on the rocks, "everything is my fault". Endorses high anxiety more than 50% of the time, states he gets overwhelmed easily, trouble controlling, and completing tasks, states he gets frustrated and angry easily. Especially due to CHF everything is physically and mentally exhausting. Has had CHF for the past 2 years. "If I dont want to deal with the day I will just go to sleep" Outpatient: currently in therapy - is in the process of trying to engage in group therapy/LEEANN in the community, has a bilingual patient support caseworker for housing and another for his mental health, Hx of suicide attempts: x3 total in the past few months- most recently 6 months ago but cutting wrist- used broken glass- Legal hx: three 1/2 years in [place] retirement Substance Use History Nicotine: 1 cigarette a day Alcohol: endorses- 2 tall cans every 3-4 weeks Cannabis: THC smokes daily Stimulants: hx of methamphetamine use, has been clean for the past weeks will go on binges- 2-3 months then will stop Today on Assessment: Withdrawn, spent the majority of the day sleeping, irritable and dismissive on assesment. Psychiatric Medications: venlafaxine XR Risperidone Hydroxyzine Gabapentin Side Effects: Denies No evidence of TD, EPS AIMs: 0 Review of Psychiatric Symptoms: Mood: depressed Suicide/self-harm: endorses Sleep: hypersomnia Appetite: fair Energy: tired Anxiety: manageable Irritability: present Homicidal/Anger: denies Hallucinations/Paranoia: endorses Trauma symptoms: denies Symptoms related to substance withdrawal: denies Mental Status Evaluation General Appearance: Hospital scrubs, malodorous Eye contact: consistent with social norms Demeanor: defensive Orientation: to person, place, time, situation Speech: Appropriate rate/rhythm/volume Psychomotor Activity: within normal range Abnormal Body Movements: none observed Mood: depressed, irritable Affect: Full range Suicidality: passive SI Homicidally: denies Thought content: consistent with social norms Thought process: logical, linear Thought perceptions: auditory hallucinations Attention: appears attentive Insight: fair Judgment: fair Current Medical Problems: Diabetes HTN CHF Medical History TBI Hx: denies Seizure Hx: denies FIDEL Hx: denies Diagnoses MDD, recurrent, severe w/psychosis Methamphetamine use disorder Tobacco use disorder - Assessment Presents for further evaluation and treatment for MDD, Methamphetamine use disorder. States he is here for worsening depression due to culmination of life stressors, has been off meth for one week, off his prescription medication for four days. Will continue medication as prescribed by outpatient psychiatrist, states his current medication regimen was updated about a month ago and requests no additional changes are made. Will stabilize crisis state and reassess readiness for discharge. 08/12: remains severely depressed, spending the majority of the day in bed, feeling better since attaining additional care for diabetes, remains irritable. - Safety risk: low risk of imminent self-harm, low risk of externalized violent behaviors Plan Continue venlafaxine XR 225 mg po qd Continue Risperidone 1 mg po BID Continue Hydroxyzine 10 mg po prn for anxiety Continue Gabapentin 300 mg po TID Maintenance therapy for tobacco use disorder: schedule nicotine patch, prn nicotine lozenges Continue Q15 min checks Continue Groups/Milieu Engagement Discharge Plan: follow ups with current mental health serveries including outpatient therapy and medication management: Spent approximately 30 minutes reviewing records and test results, assessing and treatment planning, completing care coordination and documenting the encounter. Discussed risks, including possible adverse effects, and benefits of treatment recommendations including no treatment. Voice recognition software may have been used to dictate this note. There may be errors due to use of such software. Reporting of serious errors is appreciated. Antibiotic Ordered?: No Objective Vitals Vital Signs Date Time Temp Pulse Resp B/P (MAP) Pulse Ox O2 Delivery O2 Flow Rate FiO2 08/12/25 09:27 82 08/12/25 07:30 14 100 Room Air 0.0 08/12/25 07:30 97.3 108/68 (81) Lab Results: 08/09/25 1520 08/09/25 2144 Problem\\Assessment\\Plan Problems/Diagnosis: (1) Methamphetamine use disorder, mild (2) Current severe episode of major depressive disorder with psychotic features CODING VISIT-PSYCHIATRY Date of Service: Aug 12, 2025 Billing Provider: GERMANIA HUFF DNP Psych Common Visit Codes: [id number] INP/OBS CARE(Low) GERMANIA HUFF DNP Aug 12, 2025 17:40
[2025-08-12 19:00] VITALS: RESP 15; O2SAT 97
[2025-08-12 20:00] VITALS: BP 111/67; PULSE 68; RESP 15; TEMP 97.9; O2SAT 97
[2025-08-13 07:30] VITALS: RESP 16; O2SAT 100
[2025-08-13 08:00] VITALS: BP 108/74; PULSE 88; RESP 16; TEMP 97.9; O2SAT 100
--- NOTE | 2025-08-13 11:07 | PROGRESS NOTE ---
Daily Progress Note Providers to CC ~ Antibiotic Timeout Antibiotic Ordered?: No Subjective RN reports that patient slumped over in the bathroom. Patient states he was feeling dizzy yesterday , likely due to his low BP because of his CHF Objective Vital Signs Date Time Temp Pulse Resp B/P (MAP) Pulse Ox O2 Delivery O2 Flow Rate FiO2 08/13/25 08:00 97.9 88 16 108/74 (85) 100 Room Air 08/12/25 07:30 0.0 Result Diagram: 08/09/25 1520 08/09/25 2144 Gen. awake alert oriented asymptomatic HEENT: Normocephalic, atraumatic, extraocular movements are intact, sclera anicteric, conjunctiva pinkish, moist oral mucosa, no rash or ulcers. NECK: Supple, no JVD, trachea midline. CHEST: Clear to auscultation, no wheezes crackles or rhonchi. HEART: Regular rate rhythm, no murmur gallop or rub. ABDOMEN: Soft, nontender, no organomegaly. EXTREMITIES: No cyanosis clubbing or edema. NEURO EXAM: Grossly nonfocal. MUSCULOSKELETAL : No joint swelling or deformities. SKIN: No rash or ulcers noted. Other Results Medications reviewed Problem\Assessment\Plan 55 years old male admitted at [facility] # major depression with psychotic features: Continue treat per psych recommendations # near-syncope: Check orthostatic vitals. Check echocardiogram. Patient states he has a history of CHF. Follow Ca precautions. May need to be monitored on tele if continues to have recurrent symptoms . We will check labs Hospitalist team will continue follow the patient per policy/protocol. Please contact the hospitalist team for any change in patient's medical condition. I will sign off. Date of Service: Aug 13, 2025 Billing Provider: ARUN BE MD Common Visit Codes: [id number] INP/OBS CARE(HIGH) ARUN BE MD Aug 13, 2025 11:07
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
[2025-08-13 19:00] VITALS: RESP 16; O2SAT 100
[2025-08-13 20:42] VITALS: BP 117/79; PULSE 99; RESP 16; TEMP 97.7; O2SAT 100
[2025-08-14 07:00] VITALS: RESP 16; O2SAT 99
[2025-08-14 08:00] VITALS: BP 111/62; PULSE 91; RESP 16; TEMP 98.5; O2SAT 99
--- NOTE | 2025-08-14 13:43 | PROGRESS NOTE ---
Progress Note Dictate Providers to CC ~ Central Line/PICC still needed: N\\A Antibiotic Ordered?: No Objective Vitals Vital Signs Date Time Temp Pulse Resp B/P (MAP) Pulse Ox O2 Delivery O2 Flow Rate FiO2 08/14/25 08:07 91 08/14/25 08:00 98.5 16 111/62 (78) 99 Room Air 08/13/25 07:30 0.0 Problem\\Assessment\\Plan Problems/Diagnosis: (1) Current severe episode of major depressive disorder with psychotic features (2) Methamphetamine use disorder, mild (3) Tobacco use Psychiatrist's Progress Note Date of Service: Aug 14, 2025 Notes Madina Vicente is a 55yo Male with history of DM 2 and suicidal ideation in the past presents to the ED via EMS after his Mental health partnership development manager found him in his room hallucinating and with thoughts of harming himself. She [CM] has been trying to reach him for the past 4 days, with no response. He has been living in a hotel for the last 2 months. As there was no response from him she went to check on him and he was found to be depressed in his room, thoughts of harming cutting his wrist with a razor blade. He is a diabetic and uses insulin [does not remember how much insulin], hasn't been taking any of his meds for the last 4 days. His sugars today are 499, hasn't been eating anything as well. States " i want to kill myself, i have a plan, using the razor blade" He has tried to commit suicide in the past and was also on 5250 HOLD in the past. He is a Black male with a balding head, black lazo and mustache. T shirt and green pants. Doing okay. Feeling better than he was. Each day feeling better. Went in and painted, [place] music made him feel kind of lonely, sad. Not as depressed. 'not wanting to hurt myself'. 'praying too.' 'show me what you want me to do.' No AH/VH. No Paranoia. Was before. Voices were telling him he was no good and should kill himself. And talk to them and yelling at them. Starting to have some clarity about it now. 'piece it together.' 'need to stop using.' Sleeping good here. Mental Status Eye contact: Fair; Behavior: Cooperative. Speech: Regular. Mood: Depressed. Affect: Full. Thought process: No disorganization, Linear. Denies Paranoia. Denies Delusions. Thought Content: immediate needs/medications. Cognition: A&O X4; Insight: Fair; Judgment: Poor- Impulsive; SI Denies/HI Denies, AH Denies/VH Denies Results Of any Diagn. Testing REVIEWED Treatment Doing really well. Will wait it out and see how he does. He is improving. Going to call watch caser tomorrow and get a plan for a safe discharge. Venlafaxine XR 225 mg po qd Risperidone 1 mg po BID Hydroxyzine 10 mg po prn for anxiety Gabapentin 300 mg po TID Current Medical Problems: Diabetes HTN CHF Medical History TBI Hx: denies Seizure Hx: denies FIDEL Hx: denies Monitoring by Staff, Milieu, Group, and Individual counseling as needed -- According to the [place] Suicide Assessment the above named patient is on Q 15 MINUTE CHECKS. DTS-- VOL -- The patient does not have a good safety plan for discharge at this time. We are still titrating medications to an effective dose while maintaining a therapeutic environment to prevent decompensation and readmission. DISCHARGE UNSURE AT THIS TIME. REVIEW OF Clinical notes [X ] RN notes [X] PCT documentation [X] SW notes [X] Labs [ X] Medications [X] Care trends/care activity [X] Vitals [X] DISCUSSION WITH steel worker [X] CODING VISIT-PSYCHIATRY Date of Service: Aug 14, 2025 Billing Provider: JUAN BATES Psych Common Visit Codes: [id number] INP/OBS CARE(Mod) Problem Qualifiers (1) Current severe episode of major depressive disorder with psychotic features: Qualified Codes: F33.3 - Major depressive disorder, recurrent, severe with psychotic symptoms JAUN BATES Aug 14, 2025 13:43
[2025-08-14 20:00] VITALS: BP 142/89; PULSE 108; RESP 18; TEMP 98.8; O2SAT 97
[2025-08-15 06:52] VITALS: RESP 12; O2SAT 99
[2025-08-15 07:21] VITALS: BP 99/58; PULSE 93; RESP 12; TEMP 98.3; O2SAT 99
--- NOTE | 2025-08-15 14:01 | PROGRESS NOTE ---
Progress Note Dictate Providers to CC ~ Progress Note: Admission date: 08/11/25 Status: VOL CC: "depression" HPI: Admitted on 5150 for danger to self, suicidal ideation with intent, no specific plan. AH that command suicide. Stopped eating and taking his prescribed medication. States he has been suffering from depression for the past few months, contributing factors: "holidays, lack of family. Feels like everything in life is just going wrong for him. States this has been a new/thought/feeling ex. With his relationships is on the rocks, "everything is my fault". Endorses high anxiety more than 50% of the time, states he gets overwhelmed easily, trouble controlling, and completing tasks, states he gets frustrated and angry easily. Especially due to CHF everything is physically and mentally exhausting. Has had CHF for the past 2 years. "If I dont want to deal with the day I will just go to sleep" Outpatient: currently in therapy - is in the process of trying to engage in group therapy/LEEANN in the community, has a nurse case manager for housing and another for his mental health, Hx of suicide attempts: x3 total in the past few months- most recently 6 months ago but cutting wrist- used broken glass- Legal hx: three 1/2 years in [place] [facility] Substance Use History Nicotine: 1 cigarette a day Alcohol: endorses- 2 tall cans every 3-4 weeks Cannabis: THC smokes daily Stimulants: hx of methamphetamine use, has been clean for the past weeks will go on binges- 2-3 months then will stop Today on Assessment: More engaged socially.. Anxiety about leaving the unit, states if he leaves he feels like he may attempt to harm himself, discussed he is depressed to be alone over the holidays. States he is really struggling with being alone during the holidays- is will to help problem sole with staff and nurse case manager. Review of Psychiatric Symptoms: Mood: mild depression- more optimistic, less helpless "more of a piece of mind" Suicide/self-harm: denies but he think he would if he were to discharge today Sleep: 5.75 hours Appetite: fair Energy: tired Anxiety: manageable Irritability: present Homicidal/Anger: denies Hallucinations/Paranoia: denies Trauma symptoms: denies Symptoms related to substance withdrawal: endorses cycles of using meth then withdrawing from meth which will trigger depression Psychiatric Medications Side Effects: Denies No evidence of TD, EPS AIMs: 0 Mental Status Evaluation General Appearance: Hospital scrubs, adequate hygiene Eye contact: consistent with social norms Demeanor: cooperative Orientation: to person, place, time, situation Speech: Appropriate rate/rhythm/volume Psychomotor Activity: within normal range Abnormal Body Movements: none observed Mood: depressed Affect: Full range Suicidality: denies Homicidally: denies Thought content: consistent with social norms Thought process: logical, linear Thought perceptions: denies Attention: appears attentive Insight: fair Judgment: fair Current Medical Problems: Diabetes HTN CHF Medical History TBI Hx: denies Seizure Hx: denies FIDEL Hx: denies Diagnoses MDD, recurrent, severe w/psychosis Methamphetamine use disorder Tobacco use disorder - Assessment Presents for further evaluation and treatment for MDD, Methamphetamine use disorder. States he is here for worsening depression due to culmination of life stressors, has been off meth for one week, off his prescription medication for four days. Will continue medication as prescribed by outpatient psychiatrist, states his current medication regimen was updated about a month ago and requests no additional changes are made. Will stabilize crisis state and reassess readiness for discharge. 08/15: improved mood, no longer in crisis, reflecting on triggers that led to hospitalization. VOL: admitted for danger to self, in the process of formulating treatment plan with nurse case manager to continue care outpatient - Safety risk: low risk of imminent self-harm, low risk of externalized violent behaviors Plan Continue venlafaxine XR 225 mg po qd Risperidone 1 mg po BID Hydroxyzine 10 mg po prn for anxiety Gabapentin 300 mg po TID Maintenance therapy for tobacco use disorder: schedule nicotine patch, prn nicotine lozenges Continue Q15 min checks Continue Groups/Milieu Engagement Discharge Plan: voluntary- can return to his current hotel room in [facility] Plan to attain more social support in the community setting- care coordination with care manger follow ups with current mental health serveries including outpatient therapy and medication management: Spent approximately 30 minutes reviewing records and test results, assessing and treatment planning, completing care coordination and documenting the encounter. Discussed risks, including possible adverse effects, and benefits of treatment recommendations including no treatment. Voice recognition software may have been used to dictate this note. There may be errors due to use of such software. Reporting of serious errors is appreciated. 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
--- NOTE | 2025-08-15 18:40 | PROGRESS NOTE ---
Daily Progress Note Providers to CC ~ Antibiotic Timeout Antibiotic Ordered?: No Subjective Patient was seen in Behavioral Health unit in his room he mentioned he is w aiting for social science research assistant to discuss his care plan with them he is already evaluated by Psychiatry team. Objective Vital Signs Date Time Temp Pulse Resp B/P (MAP) Pulse Ox O2 Delivery O2 Flow Rate FiO2 08/15/25 07:42 93 08/15/25 07:21 98.3 12 99/58 (72) 99 Room Air 08/13/25 07:30 0.0 General-patient not in any acute distress, alert awake age-appropriate, looks comfortable HEENT-atraumatic normocephalic, neck supple without elevated JVD, No lymphadenopathy bilaterally. Eyes-no icterus or pallor seen in eyes Chest-clear to auscultation bilaterally, breathing nonlabored no tachypnea, no wheezing, no crepitation, no crackles. Heart-S1-S2 normal, regular heart rate no murmur Abdomen bowel sounds positive on auscultation, soft nondistended nontender no guarding, no rigidity Skin no active skin rash Neurology-grossly intact, nonfocal alert awake cooperated during physical examination Extremity- no pedal edema able to move all 4 extremities Problem\Assessment\Plan Type 2 diabetes, insulin dependent, noncompliant with medications Hemoglobin A1c 12 Patient on insulin glargine 20 units HS subcutaneous, insulin lispro 5 units subcutaneous. Blood sugars in the range of 250s to 80s Continue same dosage 75 g Carb controlled diet CAD due to drug use status post PCI Continue home medication aspirin 81 mg p.o. daily, atorvastatin 80 mg p.o. daily and spironolactone 12.5 mg p.o. daily. Suicidal ideation and hallucinations Managed as per [facility] Hospitalist team will continue follow the patient per policy/protocol. Please contact the hospitalist team for any change in patient's medical condition. Date of Service: Aug 15, 2025 Billing Provider: EVAN DANIEL MD Common Visit Codes: [id number] INP/OBS CARE(LOW) EVAN DANIEL MD Aug 15, 2025 18:40
[2025-08-15 19:00] VITALS: RESP 17; O2SAT 100
[2025-08-15 20:00] VITALS: BP 121/64; PULSE 101; RESP 17; TEMP 97.3; O2SAT 100
[2025-08-16 09:17] VITALS: BP 95/61; PULSE 95; RESP 15; TEMP 98.6; O2SAT 96
[2025-08-16 13:21] VITALS: RESP 15; O2SAT 96
--- NOTE | 2025-08-16 15:56 | PROGRESS NOTE ---
Progress Note Dictate Providers to CC ~ Progress Note: Admission date: 08/11/25 Admission Information: Admitted on 5150 for danger to self, suicidal ideation with intent, no specific plan. AH that command suicide. Stopped eating and taking his prescribed medication. States he has been suffering from depression for the past few months, contributing factors: "holidays, lack of family. Feels like everything in life is just going wrong for him. Intermittent methamphetamine use. Interval History: More engaged socially. Improved mood. Still spending the majority of the day in bed. Review of Psychiatric Symptoms: Mood: mild depression- more optimistic, less helpless "more of a piece of mind" Suicide/self-harm: denies but he think he would if he were to discharge today Sleep: 5.75 hours Appetite: fair Energy: tired Anxiety: manageable Irritability: present Homicidal/Anger: denies Hallucinations/Paranoia: denies Trauma symptoms: denies Symptoms related to substance withdrawal: endorses cycles of using meth then withdrawing from meth which will trigger depression Psychiatric Medications Side Effects: Denies No evidence of TD, EPS AIMs: 0 Mental Status Evaluation General Appearance: Hospital scrubs, adequate hygiene Eye contact: consistent with social norms Demeanor: cooperative Orientation: to person, place, time, situation Speech: Appropriate rate/rhythm/volume Psychomotor Activity: within normal range Abnormal Body Movements: none observed Mood: depressed Affect: Full range Suicidality: denies Homicidally: denies Thought content: consistent with social norms Thought process: logical, linear Thought perceptions: denies Attention: appears attentive Insight: fair Judgment: fair Current Medical Problems: Diabetes HTN CHF Medical History TBI Hx: denies Seizure Hx: denies FIDEL Hx: denies Diagnoses MDD, recurrent, severe w/psychosis Methamphetamine use disorder Tobacco use disorder - Assessment Presents for further evaluation and treatment for MDD, Methamphetamine use disorder. States he is here for worsening depression due to culmination of life stressors, has been off meth for one week, off his prescription medication for four days. Will continue medication as prescribed by outpatient psychiatrist, states his current medication regimen was updated about a month ago and requests no additional changes are made. Will stabilize crisis state and reassess readiness for discharge. 08/15: improved mood more social, no longer in crisis, problem solving with piano case maker and SW methods to improve mental health support out in the community VOL: admitted for danger to self, in the process of formulating treatment plan with piano case maker to continue care outpatient - Safety risk: low risk of imminent self-harm, low risk of externalized violent behaviors Plan Continue venlafaxine XR 225 mg po qd Risperidone 1 mg po BID Hydroxyzine 10 mg po prn for anxiety Gabapentin 300 mg po TID Maintenance therapy for tobacco use disorder: schedule nicotine patch, prn nicotine lozenges Continue Q15 min checks Continue Groups/Milieu Engagement Discharge Plan: voluntary- can return to his current hotel room in [facility] Plan to attain more social support in the community setting- care coordination with care manger follow ups with current mental health serveries including outpatient therapy and medication management: Spent approximately 30 minutes reviewing records and test results, assessing and treatment planning, completing care coordination and documenting the encounter. Discussed risks, including possible adverse effects, and benefits of treatment recommendations including no treatment. Voice recognition software may have been used to dictate this note. There may be errors due to use of such software. Reporting of serious errors is appreciated. Antibiotic Ordered?: No Objective Vitals Vital Signs Date Time Temp Pulse Resp B/P (MAP) Pulse Ox O2 Delivery O2 Flow Rate FiO2 08/16/25 13:21 15 96 Room Air 08/16/25 09:17 98.6 95 95/61 (72) 08/13/25 07:30 0.0 Problem\\Assessment\\Plan Problems/Diagnosis: (1) Methamphetamine use disorder, mild (2) Current severe episode of major depressive disorder with psychotic features CODING VISIT-PSYCHIATRY Date of Service: Aug 16, 2025 Billing Provider: GERMANIA HUFF DNP Psych Common Visit Codes: [id number] INP/OBS CARE(Low) Problem Qualifiers (1) Current severe episode of major depressive disorder with psychotic features: Qualified Codes: F33.3 - Major depressive disorder, recurrent, severe with psychotic symptoms GERMANIA HUFF DNP Aug 16, 2025 15:56
[2025-08-16] MEDS: INSULIN LISPRO 100 UNIT/ML INSULN.PEN MULTI-DOSE SQ SCH (17:19)
[2025-08-16 19:57] VITALS: BP 113/79; PULSE 111; RESP 16; TEMP 96.9; O2SAT 100
[2025-08-16 20:00] VITALS: RESP 16; O2SAT 100
[2025-08-17 07:00] VITALS: RESP 16; O2SAT 100
[2025-08-17 08:00] VITALS: BP 106/62; PULSE 87; RESP 16; TEMP 97.2; O2SAT 97
--- NOTE | 2025-08-17 18:35 | PROGRESS NOTE- Residence ---
Progress Note - Resident Providers to CC Resident Creating Document: SHANKAR TOLLIVER CC: SARABJIT AVITIA MD ~ Antibiotic Timeout Antibiotic Ordered?: No Subjective Patient was seen and examined in [facility] unit today. Patient reports to be doing well and denies any complaints. He does report he has history of CHF and he is supposed to be taking Metoprolol. He stated his last EF was 40% Objective Vital Signs Date Time Temp Pulse Resp B/P (MAP) Pulse Ox O2 Delivery O2 Flow Rate FiO2 08/17/25 08:00 97.2 87 16 106/62 (77) 97 Room Air 08/13/25 07:30 0.0 General: awake, alert oriented to place, time, and person HEENT: No pallor present, no icterus, moist mucous membranes Neck: No masses and tenderness Resp: Unlabored. Lungs clear to auscultation bilaterally. Chest: Normal expansion Cardiovascular: Regular Rate and rhythm, normal S1 and S2 without murmur, rub or gallop Abdomen: Soft and nontender, no organomegaly, no guarding and rigidity, bowel sounds present Neuro: No focal weakness in the upper and lower limb muscles, power of the muscles 5/5 bilateral upper and lower extremities, normal reflexes bilaterally. Cranial nerves intact Extremities: No cyanosis,clubbing or edema Skin: Warm and Dry. No lesions Psych: Normal affect and mood. Cooperative with care Plan Plan Type 2 diabetes, insulin dependent, noncompliant with medications Hemoglobin A1c 12 Blood sugars still not controlled Will increase insulin glargine to 25 units HS, insulin lispro 3 units subcutaneous with meals and continue high dose supplemental. 75 g Carb controlled diet CAD due to drug use status post PCI Chronic HFpEF, EF 55% Continue home medication aspirin 81 mg p.o. daily, atorvastatin 80 mg p.o. daily and spironolactone 12.5 mg p.o. daily. Resume home Metoprolol Suicidal ideation and hallucinations Managed as per [facility] Most recent labs reviewed Hospitalist team will continue follow the patient per policy/protocol. Please contact the hospitalist team for any change in patient's medical condition. Shankar Tracy MD Internal Medicine Resident PGY-2 Date of Service: Aug 17, 2025 Billing Provider: SARABJIT AVITIA MD, LEONARDO LUIS Aug 17, 2025 18:35
--- NOTE | 2025-08-17 19:19 | PROGRESS NOTE ---
Progress Note Dictate Providers to CC ~ Progress Note: Admission date: 08/11/25 Admission Information: Admitted on 5150 for danger to self, suicidal ideation with intent, no specific plan. AH that command suicide. Stopped eating and taking his prescribed medication. States he has been suffering from depression for the past few months, contributing factors: "holidays, lack of family. Feels like everything in life is just going wrong for him. Intermittent methamphetamine use. Interval History: More engaged socially. Improved mood. Review of Psychiatric Symptoms: Mood: mild depression- more optimistic, less helpless "more of a piece of mind" Suicide/self-harm: denies but he think he would if he were to discharge today Sleep: 4.5 hours Appetite: fair Energy: tired Anxiety: manageable Irritability: present Homicidal/Anger: denies Hallucinations/Paranoia: denies Trauma symptoms: denies Symptoms related to substance withdrawal: endorses cycles of using meth then withdrawing from meth which will trigger depression Psychiatric Medications Side Effects: Denies No evidence of TD, EPS AIMs: 0 Mental Status Evaluation General Appearance: Hospital scrubs, adequate hygiene Eye contact: consistent with social norms Demeanor: cooperative Orientation: to person, place, time, situation Speech: Appropriate rate/rhythm/volume Psychomotor Activity: within normal range Abnormal Body Movements: none observed Mood: depressed Affect: Full range Suicidality: denies Homicidally: denies Thought content: consistent with social norms Thought process: logical, linear Thought perceptions: denies Attention: appears attentive Insight: fair Judgment: fair Current Medical Problems: Diabetes HTN CHF Medical History TBI Hx: denies Seizure Hx: denies FIDEL Hx: denies Diagnoses MDD, recurrent, severe w/psychosis Methamphetamine use disorder Tobacco use disorder - Assessment Presents for further evaluation and treatment for MDD, Methamphetamine use disorder. States he is here for worsening depression due to culmination of life stressors, has been off meth for one week, off his prescription medication for four days. Will continue medication as prescribed by outpatient psychiatrist, states his current medication regimen was updated about a month ago and requests no additional changes are made. Will stabilize crisis state and reassess re adiness for discharge. No changes to medication regimen indicated, significant improvements with engagement in [employer]. 08/17: improvements in mood with socialization, continues to further problem solve and reflect on contributing factors that led to admission VOL: admitted for danger to self, in the process of formulating treatment plan with leather case finisher to continue care outpatient - - Safety risk: low risk of imminent self-harm, low risk of externalized violent behaviors Plan Continue venlafaxine XR 225 mg po qd Risperidone 1 mg po BID Hydroxyzine 10 mg po prn for anxiety Gabapentin 300 mg po TID Maintenance therapy for tobacco use disorder: schedule nicotine patch, prn nicotine lozenges Continue Q15 min checks Continue Groups/Milieu Engagement Discharge Plan: Referred to [facility]- will interview /friday voluntary- can return to his current hotel room in [facility] Plan to attain more social support in the community setting- care coordination with care manger follow ups with current mental health serveries including outpatient therapy and medication management: Spent approximately 30 minutes reviewing records and test results, assessing and treatment planning, completing care coordination and documenting the encounter. Discussed risks, including possible adverse effects, and benefits of treatment recommendations including no treatment. Voice recognition software may have been used to dictate this note. There may be errors due to use of such software. Reporting of serious errors is appreciated. Antibiotic Ordered?: N/A Objective Vitals Vital Signs Date Time Temp Pulse Resp B/P (MAP) Pulse Ox O2 Delivery O2 Flow Rate FiO2 08/17/25 08:00 97.2 87 16 106/62 (77) 97 Room Air 08/13/25 07:30 0.0 Problem\\Assessment\\Plan Problems/Diagnosis: (1) Methamphetamine use disorder, mild (2) Current severe episode of major depressive disorder with psychotic features CODING VISIT-PSYCHIATRY Date of Service: Aug 17, 2025 Billing Provider: GERMANIA HUFF DNP Psych Common Visit Codes: [id number] INP/OBS CARE (High) Problem Qualifiers (1) Current severe episode of major depressive disorder with psychotic features: Qualified Codes: F33.3 - Major depressive disorder, recurrent, severe with psychotic symptoms GERMANIA HUFF DNP Aug 17, 2025 19:19
[2025-08-17 19:32] VITALS: BP 99/58; PULSE 78; RESP 18; TEMP 97.7; O2SAT 94
[2025-08-17] MEDS: insulin glargine (Lantus) pen - multi-dose SQ SCH (21:29)
[2025-08-18 07:00] VITALS: BP 103/64; PULSE 94; RESP 16; TEMP 97.7; O2SAT 79; O2SAT 99
[2025-08-18] MEDS: metoprolol succinate 25mg (24-HOUR) SR. Tablet PO SCH (07:40)
[2025-08-18] MEDS: INSULIN LISPRO 100 UNIT/ML INSULN.PEN MULTI-DOSE SQ SCH (08:56)
--- NOTE | 2025-08-18 16:18 | PROGRESS NOTE ---
Progress Note Dictate Providers to CC ~ Antibiotic Ordered?: N/A (n/a) Objective Vitals Vital Signs Date Time Temp Pulse Resp B/P (MAP) Pulse Ox O2 Delivery O2 Flow Rate FiO2 08/18/25 07:40 94 08/18/25 07:00 16 99 Room Air 08/18/25 07:00 97.7 103/64 (77) Psychiatrist's Progress Note Date of Service: Aug 18, 2025 Time of Evaluation: 09:30 Notes Upon assessment today, patient is seen sitting in rec room and taken into his o wn room for privacy. He reports being admitted into the psychiatric unit due to suicidal ideation with plans to cut himself. He has had one previous suicide attempt in the past by means of cutting his wrist. Throughout the assessment he reports his recent breakup/divorce with former and upcoming holiday season has contributed to his current depressed mood and suicidality. He also endorses command auditory hallucinations of voices from his ex- and sister. He states these voices say, he is no good, and why doesnt he kill himself. He states these voices started at the beginning of this year and have consistently gotten worse. During the assessment, the patient displays poor eye contact, is restless. His speech is pressured and difficult to redirect. He reports only sleeping 2-3 hours per night, stating the trazadone is ineffective. He does continue to endorse auditory hallucination and suicidal ideation. Patient is compliant with medication and denies any side effects. Patient's Status and Progress Review of systems: constitutional, psych, and neuro symptoms reviewed and negative except per HPI Comments Mental Status Exam: Patient is alert and oriented to name and place. Patient is disheveled, wearing unit-colored scrubs. No slowing is noted. Restlessness is noted No agitation is noted. Patient is difficult to redirect. Patient is cooperative throughout assessment. Language is appropriate to naming and repeating. Mood is depressed and anxious. Affect is mood congruent. Thought process is circumstantial/illogical Patient endorses SI, AH. Memory is grossly intact. Concentration is impaired to conversation. Cognition is grossly intact. Intellect is average. Insight is poor. Judgment is poor. Treatment Patient remain suicidal and continue to endorse SI and AH. Diagnosis: No change in diagnosis Formulation: This is a 55-year-old male who presents to the hospital for suicidal ideation and command auditory hallucinations. Plan to increase Risperdal 2 mg BID, Continue current treatment plan. Patient encouraged to attend groups and therapy, precautions continued, emergency procedures, treatment options, and side effects of medications reviewed. Discharge Discharge plan: Patient likely to go to [facility] transitional housing post discharge, not likely to happen until next week. CODING VISIT-PSYCHIATRY Date of Service: Aug 18, 2025 Billing Provider: ALEXEI BOLES NP Psych Common Visit Codes: [id number] INP/OBS CARE(Mod) ALEXEI BOLES NP Aug 18, 2025 16:18
[2025-08-18 19:00] VITALS: RESP 16; O2SAT 100
[2025-08-18 19:36] VITALS: BP 113/66; PULSE 98; RESP 16; TEMP 97.7; O2SAT 100
[2025-08-19] VITALS (7 sets, daily range): BP systolic 78–141; BP diastolic 52–87; PULSE 83–98; RESP 15–16; TEMP 97.5–97.7; O2SAT 94–100
--- NOTE | 2025-08-19 14:46 | PROGRESS NOTE ---
Progress Note Dictate Providers to CC ~ Antibiotic Ordered?: N/A (N/A) Objective Vitals Vital Signs Date Time Temp Pulse Resp B/P (MAP) Pulse Ox O2 Delivery O2 Flow Rate FiO2 08/19/25 13:22 110/60 (77) 08/19/25 08:00 97.7 98 16 100 08/19/25 07:00 Room Air Psychiatrist's Progress Note Date of Service: Aug 19, 2025 Time of Evaluation: 14:39 Notes Upon assessment today, patient is seen sitting in rec room and taken into his own room for privacy. He reports being admitted into the psychiatric unit due to suicidal ideation with plans to cut himself. He has had one previous suicide attempt in the past by means of cutting his wrist. Patient reported feeling "lethargic" today due to increased in medication dosage (Risperidone) but states he feels better now. Patient states that he has had the "same issue when medication was increased and had to resume regular dosage" with previous attempts at medication changes. During the assessment, the patient displays poor eye contact, is still restless and reports mild to moderate anxiety. States he is "excited about his new place" upon discharge but also reports continuing depressed feelings about holiday season and breakup with si but feels hopeful going to his new place of residence now. He reports sleeping more last night and today but also states feeling lethargic after medication change. He does continue to endorse auditory hallucination but able to "tune out the voices" and suicidal ideation is still present. Patient is compliant with medication and hypotension is resolving. Patient's Status and Progress Review of systems: constitutional, psych, and neuro symptoms reviewed and negative except per HPI. Appearnace: Disheveled, Other Speech: Normal Eye Contact: Normal Motor Activity: Restless Affect: Full, Other (Affect is mood congruent) Comments wearing scrubs provided by the unit Mood: Anxious, Depressed Orientation Impairment: None Memory Impairment: None Attention: Distracted Hallucinations: Auditory Other: None Suicidality: Ideation Homicidality: None Delusions: None Behavior: Cooperative Insight: Poor Judgment: Poor Treatment Current medical dx: DM, HTN, CHF Diagnosis: MDD, recurrent severe w/psychosis Methamphetamine use disorder Tobacco use disorder Medications: Venlafaxine XR 225mg PO daily Risperidone 1mg BID (failed attempted increase to 2mg BID/hypotension) Hydroxyzine 10mg PRN anxiety Gabapentin 300mg TID Formulation: Patient is a 55 year old male for further evaluation and treatment for MDD, methamphetamine use disorder. States is here for SI/AH due to recent breakup with significant other. Vol admission and remains high safety risk to self. Plan: Continue medications as above, plan for discharge on to group housing ([facility]). CODING VISIT-PSYCHIATRY Date of Service: Aug 19, 2025 Billing Provider: ALEXEI BOLES NP Psych Common Visit Codes: [id number] INP/OBS CARE(Mod) ALEXEI BOLES NP Aug 19, 2025 14:46
--- NOTE | 2025-08-19 19:35 | PROGRESS NOTE- Residence ---
Progress Note - Resident Providers to CC Resident Creating Document: GREY BOBBY, MARLENE ~ Antibiotic Timeout Antibiotic Ordered?: No Subjective Patient was seen and examined in [facility] unit today. He reports that he is doing well and has no medical issues. Objective Vital Signs Date Time Temp Pulse Resp B/P (MAP) Pulse Ox O2 Delivery O2 Flow Rate FiO2 08/19/25 13:22 110/60 (77) 08/19/25 08:00 97.7 98 16 100 08/19/25 07:00 Room Air General: awake, alert oriented to place, time, and person HEENT: No pallor present, no icterus, moist mucous membranes Neck: No masses and tenderness Resp: Unlabored. Lungs clear to auscultation bilaterally. Chest: Normal expansion Cardiovascular: Regular Rate and rhythm, normal S1 and S2 without murmur, rub or gallop Abdomen: Soft and nontender, no organomegaly, no guarding and rigidity, bowel sounds present Neuro: No focal weakness in the upper and lower limb muscles, power of the muscles 5/5 bilateral upper and lower extremities, normal reflexes bilaterally. Cranial nerves intact Extremities: No cyanosis,clubbing or edema Skin: Warm and Dry. No lesions Psych: Normal affect and mood. Cooperative with care Plan Plan Type 2 diabetes, insulin dependent, noncompliant with medications Hemoglobin A1c 12 Blood sugars still not controlled Increased the Lantus dose from 25 to 28 units, continuing lispro 3 units subcutaneous with meals and on high-dose supplement protocol. 75 g Carb controlled diet CAD due to drug use status post PCI Chronic HFpEF, EF 55% No Signs of fluid overload Continue home medication aspirin 81 mg p.o. daily, atorvastatin 80 mg p.o. daily On metoprolol succinate 50 mg and spironolactone 12.5 mg p.o. daily. Suicidal ideation and hallucinations Managed as per [facility] Most recent labs reviewed Hospitalist team will continue follow the patient per policy/protocol. Please contact the hospitalist team for any change in patient's medical condition. Grey bobby M.D PGY2 Date of Service: Aug 19, 2025 Billing Provider: RODOLFO MCCALLUM MD Common Visit Codes: [id number] INP/OBS CARE(MOD), [id number] INP/OBS CARE(HIGH) GREY BOBBY RES Aug 19, 2025 19:35 RODOLFO MCCALLUM MD Aug 20, 2025 08:34
[2025-08-19] MEDS: insulin glargine (Lantus) pen - multi-dose SQ SCH (21:12)
[2025-08-20 07:00] VITALS: RESP 16; O2SAT 94
[2025-08-20 08:00] VITALS: BP 103/73; PULSE 110; RESP 16; TEMP 97.9; O2SAT 100
--- NOTE | 2025-08-20 09:21 | PROGRESS NOTE ---
Progress Note Dictate Providers to CC ~ Antibiotic Ordered?: No (N/A) Objective Vitals Vital Signs Date Time Temp Pulse Resp B/P (MAP) Pulse Ox O2 Delivery O2 Flow Rate FiO2 08/20/25 08:40 110 08/20/25 08:00 97.9 16 103/73 (83) 100 Room Air Problem\\Assessment\\Plan Problems/Diagnosis: (1) Suicidal ideation (2) Methamphetamine use disorder, mild (3) Current severe episode of major depressive disorder with psychotic features Psychiatrist's Progress Note Date of Service: Aug 20, 2025 Time of Evaluation: 08:15 Notes Upon assessment today, patient is seen sitting in rec room watching TV. Patient reported feeling "lethargy resolved", but problems sleeping and reported only sleeping 2 hours last night. Patient feels that he is having anxiety about leaving on Friday and feels this is why he was unable to sleep last night. The patient describes anxiety as causing racing thoughts that prevents him from quieting his mind. Patient describes mood as stable and manageable. During the assessment, the patient displays poor eye contact, is still restless and reports mild to moderate anxiety. He does continue to endorse auditory hallucination but able to "tune out the voices" and suicidal ideation is still present. Patient is compliant with medication and hypotension resolved. Patient's Status and Progress Review of systems: constitutional, psych, and neuro symptoms reviewed and nega tive except per HPI. Appearnace: Other (appropriate, states he showered yesterday, wearing hospital scrubs) Speech: Pressured Eye Contact: Normal Motor Activity: Restless Affect: Full Comments Congruent with mood Mood: Anxious Orientation Impairment: None Memory Impairment: None Attention: Normal Hallucinations: Auditory Suicidality: Ideation Homicidality: None Delusions: None Behavior: Cooperative Insight: Fair Judgment: Fair Assessment Risk Assessment: Moderate Risk for injury to self, hx of previous suicide attempts. Mr. Vázquez is a 55 year old male, currently from his significant other with a history of methamphetamine and tobacco use disorder, MDD recurrent with psychosis PMH of DM, HTN, CHF who is currently under a voluntary hold for the above. Plan Continue current medication treatment plan and monitor. Sleep disturbance-continue to monitor sleep patterns and address underlying anxiety contributing to insomnia. Plan to discharge to [facility] ([facility] on Friday. Problem List: (1) Suicidal ideation (2) Current severe episode of major depressive disorder with psychotic features (3) Generalized anxiety disorder (4) Insomnia (5) Methamphetamine abuse CODING VISIT-PSYCHIATRY Date of Service: Aug 20, 2025 Billing Provider: ALEXEI BOLES NP Psych Common Visit Codes: [id number] INP/OBS CARE(Mod) Meds/Labs/Orders Medication List: Current Medications Gabapentin (Neurontin capsule) 300 mg TID PO Hydroxyzine HCl (Atarax tablet) 10 mg BID PRN PO insomnia Venlafaxine HCl (Effexor XR capsule) 225 mg QAM PO Chlorpromazine HCl (Thorazine tablet) 50 mg Q6H PRN PO agitation; Trazodone HCl (Desyrel tablet) 50 mg HS PRN PO Insomnia Diphenhydramine HCl (Benadryl capsule) 50 mg Q6H PRN PO EPS; Hydroxyzine HCl (Atarax tablet) 50 mg Q6H PRN PO anxiety; Risperidone (Risperdal tablet) 1 mg BID PO Melatonin (Melatonin tablet) 3 mg HS PO ; Lab results: Laboratory Tests Test 08/18/25 11:58 08/18/25 16:55 08/18/25 21:22 08/18/25 23:53 Glucometer 190 mg/dl 206 mg/dl 235 mg/dl 215 mg/dl Test 08/19/25 07:12 08/19/25 12:20 08/19/25 17:08 08/19/25 20:55 Glucometer 116 mg/dl 210 mg/dl 276 mg/dl 332 mg/dl Test 08/20/25 07:04 Glucometer 162 mg/dl My orders: Orders - ALEXEI BOLES NP Risperidone Tablet (Risperdal Tablet) (08/20/25 08:00) Melatonin Tablet (Melatonin Tablet) (08/20/25 21:00) Problem Qualifiers (1) Current severe episode of major depressive disorder with psychotic features: Qualified Codes: F33.3 - Major depressive disorder, recurrent, severe with psychotic symptoms ALEXEI BOLES NP Aug 20, 2025 09:21
[2025-08-20 19:00] VITALS: RESP 16; O2SAT 99
[2025-08-20 19:33] VITALS: BP 116/81; PULSE 82; RESP 16; TEMP 97.7; O2SAT 99
[2025-08-21 07:00] VITALS: RESP 16; O2SAT 100
[2025-08-21 08:47] VITALS: BP_SYST 103; BP_SYST 85; BP_DIAS 58; BP_DIAS 70; PULSE 95; RESP 16; TEMP 97.8; O2SAT 100
--- NOTE | 2025-08-21 10:44 | PROGRESS NOTE ---
Daily Progress Note Providers to CC ~ Antibiotic Timeout Antibiotic Ordered?: No Subjective This is the hospitalist progress note on patients hospitalized at [facility] psychiatric heredia/ [facility] for behavioral health. The patient has no acute medical complaints or concerns however his afternoon and evening postprandial blood glucose remains uncontrolled and I have adjusted the PC insulin accordingly Objective Vital Signs Date Time Temp Pulse Resp B/P (MAP) Pulse Ox O2 Delivery O2 Flow Rate FiO2 08/21/25 08:47 97.8 95 16 85/58 (67) 100 Room Air 103/70 (81) Gen. No acute distress alert and oriented Lungs clear to ascultation bilaterally, no wheezes rales or rhonchi appreciated Heart normal sinus rhythm no murmurs rubs or clicks noted Abdomen soft nontender bowel sounds are normoactive Lower extremities no clubbing cyanosis, nor edema appreciated bilaterally Problem\Assessment\Plan Type 2 diabetes, insulin dependent, noncompliant with medications Hemoglobin A1c 12 Patient on insulin glargine 28 units HS subcutaneous, as well as high dose sli ding scale Blood sugars are controlled in the a.m. and in the 200s postprandial after lunch and in the low 300s in the evening 08/21 I adjusted the PC insulin for post lunch and post dinner -previously on 3 units PC (which is continued post breakfast) increase dose to 5 units post lunch and 8 units post dinner, continue monitor blood glucose a.c. and HS and may need to further up titrate PC insulin. 75 g Carb controlled diet CAD due to drug use status post PCI Continue home medication aspirin 81 mg p.o. daily, atorvastatin 80 mg p.o. daily and spironolactone 12.5 mg p.o. daily. Suicidal ideation and hallucinations Managed as per [facility] Hospitalist team will continue follow the patient. Date of Service: Aug 21, 2025 Billing Provider: MICHELLE HAMILTON DO Common Visit Codes: [id number] INP/OBS CARE(MOD) MICHELLE HAMILTON DO Aug 21, 2025 10:44
[2025-08-21] MEDS: INSULIN LISPRO 100 UNIT/ML INSULN.PEN MULTI-DOSE SQ SCH ×2 (13:05→17:38)
--- NOTE | 2025-08-21 13:59 | PROGRESS NOTE ---
Progress Note Dictate Providers to CC ~ Antibiotic Ordered?: N/A (NA) Objective Vitals Vital Signs Date Time Temp Pulse Resp B/P (MAP) Pulse Ox O2 Delivery O2 Flow Rate FiO2 08/21/25 08:47 97.8 95 16 85/58 (67) 100 Room Air 103/70 (81) Problem\\Assessment\\Plan Problems/Diagnosis: (1) Suicidal ideation (2) Methamphetamine use disorder, mild (3) Current severe episode of major depressive disorder with psychotic features Psychiatrist's Progress Note Date of Service: Aug 21, 2025 Time of Evaluation: 11:30 Notes Admitted on 5149 for danger to self, suicidal ideation with intent, no specific plan. AH that command suicide. Stopped eating and taking his prescribed medication. States he has been suffering from depression for the past few months, contributing factors: "holidays, lack of family. Feels like everything in life is just going wrong for him. Intermittent methamphetamine use. Patient's Status and Progress Still sleeping this morning but easily awakens when called. Patient states had "better sleep last night with melatonin". States his mood and anxiety are "good" and anticipating discharge on Friday. Patient indicated his desire to "give up meth" and focus on new residence over the holidays despite current breakup from . Patient compliant with medication and denies any adverse side effects. ROS: constitutional, psych, and neuro symptoms reviewed and negative except per HPI Appearnace: Disheveled Speech: Normal Eye Contact: Normal Motor Activity: Other (resting in bed) Affect: Other (restricted) Mood: Anxious Orientation Impairment: None Memory Impairment: None Attention: Normal Hallucinations: Auditory Other: None Suicidality: None Homicidality: None Delusions: None Behavior: Cooperative Insight: Poor Judgment: Poor Assessment Risk Assessment: Moderate Risk for injury to self, hx of previous suicide attempts. Need for hospitalization: Patient remains psychotic, hearing command auditory hallucinations. Medication adjustments being made for stabilization. Formulation: Mr. Vázquez is a 55 year old male, currently from his significant other with a history of methamphetamine and tobacco use disorder, MDD recurrent with psychosis PMH of DM, HTN, CHF who is currently under a voluntary hold for the above. Continue current treatment plan. Patient encouraged to attend groups and therapy, precautions continued, emergency procedures, treatment options, and side effects of medications reviewed. Discharge plan: Discharge to [facility] ([place], [place]) on Friday Plan Continue current medication treatment plan and monitor. Sleep disturbance-continue to monitor sleep patterns and address underlying anxiety contributing to insomnia. Plan to discharge to [facility] ([place], [place]) (care home) on Friday. Problem List: (1) Suicidal ideation (2) Methamphetamine use disorder, mild (3) Current severe episode of major depressive disorder with psychotic features (4) Insomnia (5) Generalized anxiety disorder CODING VISIT-PSYCHIATRY Date of Service: Aug 21, 2025 Billing Provider: ALEXEI BOLES NP Psych Common Visit Codes: [id number] INP/OBS CARE(Mod) Problem Qualifiers (1) Current severe episode of major depressive disorder with psychotic features: Qualified Codes: F33.3 - Major depressive disorder, recurrent, severe with psychotic symptoms ALEXEI BOLES NP Aug 21, 2025 13:59
[2025-08-21 19:00] VITALS: RESP 18; O2SAT 99
[2025-08-21 20:00] VITALS: BP 115/70; PULSE 92; RESP 18; TEMP 97.7; O2SAT 99
[2025-08-22 07:00] VITALS: RESP 16; O2SAT 99
[2025-08-22] MEDS: INSULIN LISPRO 100 UNIT/ML INSULN.PEN MULTI-DOSE SQ SCH (07:58)
[2025-08-22 08:27] VITALS: BP_SYST 103; BP_SYST 118; BP_DIAS 70; BP_DIAS 89; PULSE 101; RESP 16; TEMP 97.9; O2SAT 99
--- NOTE | 2025-08-22 09:59 | PROGRESS NOTE ---
Progress Note Dictate Providers to CC ~ Antibiotic Ordered?: N/A (NA) Objective Vitals Vital Signs Date Time Temp Pulse Resp B/P (MAP) Pulse Ox O2 Delivery O2 Flow Rate FiO2 08/22/25 08:27 97.9 101 16 118/89 (99) 99 Room Air 103/70 (81) Problem\\Assessment\\Plan Problems/Diagnosis: (1) Suicidal ideation (2) Methamphetamine use disorder, mild (3) Current severe episode of major depressive disorder with psychotic features Psychiatrist's Progress Note Date of Service: Aug 22, 2025 Time of Evaluation: 09:15 Notes Admitted on 5150 for danger to self, suicidal ideation with intent, no specific plan. AH that command suicide. Stopped eating and taking his prescribed medication. States he has been suffering from depression for the past few months, contributing factors: "breakup with significant other, holidays, lack of family. Feels like everything in life is just going wrong for him. Intermittent methamphetamine use/binge use 5 1/2 weeks ago. Patient's Status and Progress Patient awake and watching TV in rec room, agreeable to conversation/assessment with provider. Patient states, "he is looking forward to leaving tomorrow and trying to get everything squared away". Patient reports sleeping better last night with melatonin. States his mood and anxiety are "good" and anticipating discharge on Friday. Patient endorses AH but is able to "ignore and tune them out". Patient indicated his desire to "give up meth" and focus on new residence over the holidays despite current breakup from . Patient compliant with medication and denies any adverse side effects. ROS: constitutional, psych, and neuro symptoms reviewed and negative except per HPI Appearnace: Neat Speech: Normal Eye Contact: Normal Motor Activity: Normal Affect: Other (Congruent with mood) Mood: Anxious, Other (excitable) Orientation Impairment: None Memory Impairment: None Attention: Normal Hallucinations: Auditory Other: None Suicidality: Ideation Homicidality: None Delusions: None Behavior: Cooperative Insight: Fair Judgment: Fair Medication List: Current Medications Risperidone (Risperdal tablet) 1 mg BID PO Venlafaxine HCl (Effexor XR capsule) 225 mg QAM PO Gabapentin (Neurontin capsule) 300 mg ONCE ONCE PO Melatonin (Melatonin tablet) 3 mg HS PO Chlorpromazine HCl (Thorazine tablet) 50 mg Q6H PRN PO agitation Trazodone HCl (Desyrel tablet) 50 mg HS PRN PO Insomnia Diphenhydramine HCl (Benadryl capsule) 50 mg Q6H PRN PO EPS Hydroxyzine HCl (Atarax tablet) 50 mg Q6H PRN PO anxiety Lab results: Laboratory Tests Test 08/20/25 11:52 08/20/25 16:56 08/20/25 19:42 08/20/25 21:33 Glucometer 197 mg/dl 282 mg/dl 281 mg/dl 343 mg/dl Test 08/21/25 06:36 08/21/25 12:42 08/21/25 17:08 08/21/25 20:00 Glucometer 112 mg/dl 142 mg/dl 174 mg/dl 195 mg/dl Test 08/22/25 06:55 Glucometer 249 mg/dl Assessment Risk Assessment: Moderate Risk for injury to self, hx of previous suicide attempts. Need for hospitalization: Patient remains psychotic, hearing command auditory hallucinations. Medication adjustments being made for stabilization. Formulation: Mr. Vázquez is a 55 year old male, currently from his significant other with a history of methamphetamine and tobacco use disorder, MDD recurrent with psychosis PMH of DM, HTN, CHF who is currently under a voluntary hold for the above. Continue current treatment plan. Patient encouraged to attend groups and therapy, precautions continued, emergency procedures, treatment options, and side effects of medications reviewed. Discharge plan: Discharge to [facility] on Friday Plan Continue current medication treatment plan and monitor. Sleep disturbance-continue to monitor sleep patterns and address underlying anxiety contributing to insomnia. Plan to discharge to [facility] on Friday. CODING VISIT-PSYCHIATRY Date of Service: Aug 22, 2025 Billing Provider: ALEXEI BOLES NP Psych Common Visit Codes: [id number] INP/OBS CARE(Mod) Problem Qualifiers (1) Current severe episode of major depressive disorder with psychotic features: Qualified Codes: F33.3 - Major depressive disorder, recurrent, severe with psychotic symptoms ALEXEI BOLES NP Aug 22, 2025 09:59
[2025-08-22 19:09] VITALS: RESP 16; O2SAT 99
[2025-08-22 19:25] VITALS: BP 135/88; PULSE 84; RESP 16; TEMP 98.3; O2SAT 99
[2025-08-23 07:00] VITALS: RESP 14; O2SAT 98
[2025-08-23 07:37] VITALS: BP 150/97; PULSE 86; RESP 14; TEMP 98.5; O2SAT 98
[2025-08-23 08:11] VITALS: BP_SYST 150; PULSE 86
[2025-08-23] MEDS ORDERED: VENL75CA61 PO (08:23)
[2025-08-23] MEDS ORDERED: RISP-31 PO (08:23)
--- NOTE | 2025-08-23 08:34 | DISCHARGE SUMMARY ---
Discharge Summary Providers to ~ Discharge Summary Admission Diagnosis: MDD, recurrent with psychosis Hospital Course DATE OF ADMISSION: DATE OF DISCHARGE: Discharge Diagnosis\Comment: Stable Operations\Procedures: None Consultants: Hospitalist Complications: None Condition on DC: Stable 2 or more antipsychotic used: Yes 2/more antipsychotic addressed: Yes Does Patient smoke: Yes Smoking education given.: Yes *Problems/Diagnosis: (1) Suicidal ideation Status: Resolved (2) Methamphetamine use disorder, mild Status: Resolved (3) Current severe episode of major depressive disorder with psychotic features Status: Chronic Total Time Spent on D/C: > 30 Minutes Counseling Services Smoking & Tobacco Cessation: 3-10 Minutes CODING VISIT-PSYCHIATRY Date of Service: Aug 23, 2025 Billing Provider: ALEXEI BOLES NP Psych Common Visit Codes: [id number]/OBS DISCH DAY <30min Problem Qualifiers (1) Current severe episode of major depressive disorder with psychotic features: Qualified Codes: F33.3 - Major depressive disorder, recurrent, severe with psychotic symptoms ALEXEI BOLES NP Aug 23, 2025 08:31
--- NOTE | 2025-08-23 09:58 | DISCHARGE SUMMARY ---
Discharge Summary Providers to ~ Discharge Summary Assessment Reason for admission: Admitted on 5149 for danger to self on 08/10/25, suicidal ideation with intent, no specific plan. AH that command suicide. Stopped eating and taking his prescribed medication. States he has been suffering from depression for the past few months, contributing factors: "breakup with significant other, holidays, lack of family. Feels like everything in life is just going wrong for him. Intermittent methamphetamine use/binge use 5 1/2 weeks ago. Diagnostic Lab Values: "Reference labs" Admission Diagnosis: MDD, recurrent with psychosis Hospital Course DATE OF ADMISSION: DATE OF DISCHARGE: Condition on DC: Stable 2 or more antipsychotic used: Yes 2/more antipsychotic addressed: Yes Does Patient smoke: Yes Smoking education given.: Yes Continued Medications: Aspirin (Aspirin EC) 81 Mg Tablet.dr 1 TAB PO DAILY Atorvastatin Calcium* (Lipitor*) 80 Mg Tablet 1 TAB PO DAILY, TAB Folic Acid* (Folic Acid*) Y Tab 1 MG PO DAILY for 30 Days, #30 TAB Gabapentin (Neurontin) 300 Mg Capsule 1 CAP PO TID for 30 Days, #90 CAP 0 Refills Insulin Glargine,Hum.rec.anlog* (Lantus*) 100 Unit/1 Ml Vial 25 UNIT SQ HS for 30 Days, #2 VIAL Insulin Lispro (Humalog) 100 Unit/Ml Insuln.pen 8-11 UNITS SQ Metoprolol Succinate (Metoprolol Succinate) 50 Mg Tab.sr.24h 50 MG PO DAILY for 90 Days, #90 TAB.SR Risperidone (Risperidone) 1 Mg Tablet 1 TAB PO BID for 14 Days, #28 TAB 0 Refills (This prescription has been renewed) Spironolactone (Spironolactone) 25 Mg Tablet 0.5 TAB PO DAILY Venlafaxine Hcl (Venlafaxine Hcl Er) 75 Mg Cap.sr.24h 3 CAP PO QAM for 14 Days, #42 CAP.SR (This prescription has been renewed) Discontinued Medications: Hydroxyzine Hcl* (Atarax*) 10 Mg Tablet 1-2 TAB PO BID PRN for insomnia Discharge Summary: Hospital Course is as follows. Patient initially came in with suicidal ideation with command auditory hallucinations. Admission factors were reviewed during his hospitalization including; major depressive disorder, recurrent with psychotic features. Patient's mood started to gradually improve after restarting and adjusting medications. His psychosis, depression, anxiety, SI and sleep disturbance symptoms improved. Patient's mood and affect is much improved and patient has a goal of improving life situation with new stable housing and focusing on his mental health. Patient was seen at discharge and he denied SI/HI. Was able to contract for safety. Patient is at risk for worsening symptoms and we discussed a safety plan, emergency procedures, tobacco use cessation, medication risks and SE were also discussed. Medication at discharge include Venlafaxine XR 225mg daily (rx for 14 day supply given) Risperidone 1mg PO BID (rx for 14 day supply given) MSE at discharge: Patient is alert, oriented X4, sitting in rec room playing chess with another patient awaiting discharge Casually dressed, neat and showered No slowing or agitation noted Patient is redirectable Language is appropriate to naming and repeating Mood is happy and content, pleasant Affect is congruent with mood, relaxed Thought process is linear and logical Patient denies SI/HI, still having AH but has been "ignoring them" and states they are less intrusive Recent and remote memory intact and tested via recall Concentration is intact tested via conversation and observed by playing chess Cognition is grossly intact Intellect: average Insight and judgment good, tested from medication compliance and conversation about life goals moving forward. *Problems/Diagnosis: (1) Suicidal ideation Status: Resolved (2) Current severe episode of major depressive disorder with psychotic features Status: Chronic (3) Generalized anxiety disorder Status: Chronic (4) Methamphetamine use disorder, mild Status: Resolved Total Time Spent on D/C: > 30 Minutes Counseling Services Smoking & Tobacco Cessation: 3-10 Minutes CODING VISIT-PSYCHIATRY Date of Service: Aug 23, 2025 Billing Provider: ALEXEI BOLES NP Psych Common Visit Codes: 64486-IGI/OBS DISCH DAY <30min Psych Secondary Visit Codes: 41034-LOSRZ CHNG SMOKING 3-10M Problem Qualifiers (1) Current severe episode of major depressive disorder with psychotic features: Qualified Codes: F33.3 - Major depressive disorder, recurrent, severe with psychotic symptoms ALEXEI BOLES NP Aug 23, 2025 09:41
== END 2025-08-23 10:10 | disposition home or self-care (01) | DRG 750 ==
LOC: ER 14:50 → ADULT MH 08-10 16:45
PROVIDERS: ADMIT Psychiatry & Neurology Psychiatry; ATTEND Psychiatry & Neurology Psychiatry
PROC: GZHZZZZ Group Psychotherapy (ICD-10-PCS; principal; 2025-08-11)
PROC: GZ51ZZZ Individual Psychotherapy, Behavioral (ICD-10-PCS; 2025-08-13)
DX: F33.3 Major depressive disorder, recurrent, severe with psychotic symptoms (principal); I11.0 Hypertensive heart disease with heart failure; I50.9 Heart failure, unspecified; R45.851 Suicidal ideations; E11.65 Type 2 diabetes mellitus with hyperglycemia; F15.10 Other stimulant abuse, uncomplicated; Z20.822 Contact with and (suspected) exposure to COVID-19; F17.210 Nicotine dependence, cigarettes, uncomplicated; F41.9 Anxiety disorder, unspecified; G47.00 Insomnia, unspecified; F41.1 Generalized anxiety disorder; I25.10 Atherosclerotic heart disease of native coronary artery without angina pectoris; Z59.00 Homelessness unspecified; Z79.899 Other long term (current) drug therapy; Z79.82 Long term (current) use of aspirin; Z79.4 Long term (current) use of insulin; Z91.199 Patient's noncompliance with other medical treatment and regimen due to unspecified reason; Z82.49 Family history of ischemic heart disease and other diseases of the circulatory system; Z83.3 Family history of diabetes mellitus
CPT/HCPCS: 36415; 80048; 80061; 80305; 80320; 81001; 82565; 82948; 83036; 84132; 84443; 85025; 87811; 93005; 96360; 96361; 96372; 99285; A6250; J1815; J7030; J7120

== ENCOUNTER 2025-08-26 08:33 | Inpatient (IN) | payer MEDICAID ==
[~2025-08-26] VITALS: Ht 175.3 cm; Wt 73.3 kg
[~2025-08-26 08:33] MED LIST changes: -AMOX1TAB15 PO; +ASPI-1397 PO; +ATOR-429 PO; -ATOR20TA66 PO; -DOXY50TA3 PO; +GABA300C PO; -LACT1CAP26 PO; -METF-438 PO; +RISP-31 PO
[2025-08-26] MEDS: metoprolol tartrate 1mg/ml inj IV SCH (09:33)
--- NOTE | 2025-08-26 09:33 | Physician Documentation ---
History of Present Illness ~ Chief Complaint: ETOH Stated Complaint: SOB Time Seen by MD: 08:57 Primary Medical Doctor: NONE HPI 55-year-old male with history of CHF preserved EF 55%, CAD status post PCI RCA [complicated with V fib and cardiac arrest], diabetes type 2 [A1c 11], osteomyelitis status post amputation of the left 1st and the 2nd toe brought to the ED with complaints of hallucinations and altered level of consciousness. He was here couple times in the past, during his last admission was in the behavioural health unit as he was having hallucinations and SI. Currently he states that in the morning he was having hallucinations, does not have any suicidal ideations. He drinks gin and uses methamphetamine, last use at 5:00 a.m. this morning. He also uses cannabis. Denies significant chest pains, diaphoresis, fevers/chills, nasal congestion, expectoration, palpitations, or weight loss/weight gain. In the ED he went into AFib RVR with heart rate in 140s, was given IV metoprolol push straight down to 90s. Does have significantly elevated sugars 800 he is in HHS, not in DKA. U tox positive for meth. He has a diabetic last A1c per EMR is 11, he takes insulin 28 units HS and sliding scale around 8-10 units. States he is compliant with medications takes metoprolol, insulin, aspirin and statin. Timing / Duration: hours Severity: decreased alertness Altered: mild Recent Illness/Event: none History Of: diabetes Medication Reconciliation Allergies: Coded Allergies: No Known Allergies (Unverified , 08/26/25) Scheduled Aspirin (Aspirin EC), 1 TAB PO DAILY, (Reported) Atorvastatin Calcium* (Lipitor*), 1 TAB PO DAILY, (Reported) Folic Acid* (Folic Acid*), 1 MG PO DAILY Gabapentin (Neurontin), 1 CAP PO TID, (Reported) Insulin Glargine,Hum.rec.anlog* (Lantus*), 25 UNIT SQ HS Metoprolol Succinate (Metoprolol Succinate), 50 MG PO DAILY Risperidone (Risperidone), 1 TAB PO BID Spironolactone (Spironolactone), 0.5 TAB PO DAILY, (Reported) Venlafaxine Hcl (Venlafaxine Hcl Er), 3 CAP PO QAM Miscellaneous Medications Insulin Lispro (Humalog), 8-11 UNITS SQ, (Reported) Discontinued Medications Hydroxyzine Hcl* (Atarax*), 1-2 TAB PO BID PRN for insomnia, (Reported) Past Medical History Past Medical History: Coronary Artery Disease, Hypertension, Diabetes, Anxiety, Depression Past Surgical History: noncontributory Patient History: FH: congestive heart failure FATHER, , Onset:50's - 60 brother, Onset:50's - 60 brother, Onset:50's - 60 FH: diabetes mellitus MOTHER, , Onset:30s - 40 Alcohol Use: Occasionally Drug Use: methamphetamine Lives with: Family Lives In: Home Review of Systems ROS Reviewed in full. All negative except for pertinent positive HPI. Physical Exam Vital Signs: Temperature: 97.8, Source: Temporal, Heart Rate: 78, Respiratory Rate: 18, BP: 140/89, Pulse Oximetry: 99, Weight: 73.300 Oxygen Flow Rate: 0 Physical Exam General: Awake and Alert x3, no acute distress. HEENT: Conjunctiva pink, Sclera clear, Mucus Membranes dry Neck: Supple without masses and tenderness. Resp: Unlabored. Equal breath sounds bilaterally. Heart: Regularly irregular, variable S1, no murmur or gallop. Abdomen: Soft and non tender no organomegaly. Normal bowel sounds x4 quadrant normoactive. No guarding or rigidity. Extremities: Normal ROM, no swelling, nontender. No cyanosis,clubbing or edema. S/p amputation of left 1st and 2nd toe CAVALRY OFFICER: No gross motor or sensory abnormalities. Skin: Warm and Dry. Cardiovascular: irregularly irregular Progress Results/Orders Results/Orders Orders - BRAYAN DASH RES Stat Ekg (08/26/25 09:02) Metoprolol Tartrate Inj (Lopressor Iv) (08/26/25 09:05) Chest,Single View (08/26/25 09:12) CMP (08/26/25 09:48) Ethanol (08/26/25 09:48) Lactic,2hr (08/26/25 13:00) Ringers Solution, Lacted (Lactated Ringe (08/26/25 10:50) * Undefined Nursing Orders* ONCE (08/26/25 11:13) Ringers Solution, Lacted (Lactated Ringe (08/26/25 11:15) Ringers Solution, Lacted (Lactated Ringe (08/26/25 11:15) Dextrose 5%-1/2 Normal Saline (Dextrose (08/26/25 11:15) Insulin Reg/Ns 100units/100ml (Myxredlin (08/26/25 11:15) Dextrose 50%-Water (Dextrose 50%-Water S (08/26/25 11:15) * Undefined Nursing Orders* DAILY (08/26/25 11:13) Potassium Cl 40meq/1/2ns 520ml (Potassiu (08/26/25 11:15) Potassium Cl 40meq/270ml Bag (Potassium (08/26/25 11:15) Magnesium Sulf-Water 2g/50ml (Magnesium (08/26/25 11:15) Sodium Phos 15mmol/D5 255ml (Sodium Phos (08/26/25 11:15) Sodium Phosphate Inj. (Sodium Phosphate (08/26/25 11:15) MG (08/26/25 10:13) PHOS (08/26/25 10:13) Metoprolol Succinate Er Tablet (Toprol X (08/26/25 14:00) Aspirin 81mg, Enteric-Coated (Ecotrin Ta (08/26/25 17:00) Completed Orders - BRAYAN DASH RES Cbc/Diff (08/26/25 09:04) Drug Screen, Urine (08/26/25 09:04) LA (08/26/25 09:07) Chest,Single View (08/26/25 09:12) Ringers Solution, Lacted (Lactated Ringe (08/26/25 09:35) Normal Saline 1000ml (0.9% Sodium Chlori (08/26/25 09:40) Hs Troponin I W Calculations (08/26/25 09:48) Normal Saline 1000ml (0.9% Sodium Chlori (08/26/25 10:45) Medications Received in ER Medications (Trade) Dose Ordered Sig/Maribell Route PRN Reason Start Time Stop Time Status Last Admin Dose Admin (Lopressor IV) 5 mg Q15M IV 08/26/25 09:05 08/26/25 10:00 5 MG Sodium Chloride 1,000 ml @ 1,000 mls/hr ONCE ONCE IV 08/26/25 09:40 08/26/25 10:39 DC 12/12/25 10:00 1,000 MLS/HR Lactated Ringer's 1,000 ml @ 1,000 mls/hr ONCE ONCE IV 08/26/25 10:50 08/26/25 11:49 08/26/25 10:49 1,000 MLS/HR Vital Signs 08/26/25 08/26/25 08/26/25 08/26/25 08:37 08:54 09:33 10:00 Temp 97.8 Pulse 78 138 125 Resp 16 18 B/P (MAP) 140/89 Pulse Ox 99 O2 Flow Rate 0 08/26/25 10:02 Temp 97.8 Pulse 124 Resp 19 B/P (MAP) 118/77 (91) Pulse Ox 99 O2 Flow Rate 0 Laboratory Tests Test 08/26/25 09:26 08/26/25 10:13 White Blood Count 10.5 Red Blood Count 4.90 Hemoglobin 14.5 Hematocrit 44.2 Mean Corpuscular Volume 90.2 Mean Corpuscular Hemoglobin 29.6 Mean Corpuscular Hemoglobin Concent 32.8 L Red Cell Distribution Width 15.8 H Platelet Count 395 Mean Platelet Volume 8.6 Neutrophils (%) (Auto) 80.4 H Lymphocytes (%) (Auto) 12.2 L Monocytes (%) (Auto) 6.5 Eosinophils (%) (Auto) 0.1 Basophils (%) (Auto) 0.8 Neutrophils # (Auto) 8.5 H Lymphocytes # (Auto) 1.3 Monocytes # (Auto) 0.7 Eosinophils # (Auto) 0.0 Basophils # (Auto) 0.1 CBC Comment Lactic Acid Level 5.6 *H Chemistry Comments Urine Opiates Screen Negative Urine Methadone Screen Negative Urine Fentanyl Screen Negative Urine Barbiturates Screen Negative Urine Phencyclidine Screen Negative Urine Amphetamines Screen Positive Urine Benzodiazepines Screen Negative Urine Cocaine Screen Negative Urine Cannabinoids Screen Negative Drug Screen Comment Sodium Level 139 Potassium Level 4.3 Chloride Level 102 Carbon Dioxide Level 26.4 Anion Gap 11 Blood Urea Nitrogen 20 H Creatinine 1.35 H Estimated GFR/1.73 m2 67 BUN/Creatinine Ratio 14.8 Glucose Level 808 *H Calcium Level 9.0 Total Bilirubin 0.3 Aspartate Amino Transf (AST/SGOT) 30 Alanine Aminotransferase (ALT/SGPT) 49 Alkaline Phosphatase 169 H Troponin I High Sensitivity 18 Total Protein 7.9 Albumin 3.4 Globulin 4.5 H Albumin/Globulin Ratio 0.8 L Ethyl Alcohol Level < 10 Medical Decision Making Additional information obtaine: other Findings Presented with concerns of hallucination and altered level of consciousness on evaluation he is positive for alcohol and methamphetamine last use was at 5 a.m. this morning He is severely dehydrated with elevated lactic acid 5.6, also has elevated sugars HS 800, started him on the insulin drip he is not in DKA anion gap is normal follow up with ABG Also went into AFib RVR new onset with heart rate in 140s, after giving metoprolol push his heart rate back in the 90s. Differential Dx:Considerations: Include: dehydration, DKA, encephalopathy, hyponatremia, drug overdose, ETOH intoxication, heart failure Departure Admitted to Inpatient Unit: to hospitalist Admission Level of Care: PCU with Tele Impression: Primary Impression: Atrial fibrillation with RVR Condition: Stable Referrals: NO PRIMARY CARE PROVIDER (PCP) Education Educated: Patient Signature Scribe Signature: NA Attestation: MD HARDY Houston ELIZABETH, RES Aug 26, 2025 09:33
[2025-08-26] MEDS: ringers solution, lacted 1,000 ML IV ONE ×2 (09:35→10:49)
[2025-08-26 09:41] LABS: MEAN PLATELET VOLUME 8.6 FL (7.4-10.4); RED CELL DISTRIBUTION WIDTH 15.8 % (11.5-14.5)
--- NOTE | 2025-08-26 09:56 | RADIOLOGY REPORT ---
CLINICAL HISTORY: congestion TECHNIQUE: Single view of the chest was obtained. COMPARISON: DI CHEST,TWO VIEWS on DOS: 07/19/23, DI CHEST,SINGLE VIEW on DOS: 07/16/23, DI CHEST,SINGLE VIEW on DOS: 07/16/23, DI CHEST,SINGLE VIEW on DOS: 07/15/23, CHEST,SINGLE VIEW on DOS: 09/02/22 FINDINGS: The heart size and pulmonary vasculature are normal. The lungs are clear. IMPRESSION: NO ACUTE CARDIOPULMONARY PROCESS.
[2025-08-26 09:59] LABS: URINE AMPHETAMINE SCREEN POSITIVE (Neg); URINE BARBITUATE SCREEN NEGATIVE (Neg); URINE BENZODIAZEPINES SCREEN NEGATIVE (Neg); URINE CANNABINOID SCREEN NEGATIVE (Neg); URINE COCAINE SCREEN NEGATIVE (Neg); URINE METHADONE SCREEN NEGATIVE (Neg); URINE OPIATE SCREEN NEGATIVE (Neg); URINE PHENCYCLIDINE SCREEN NEGATIVE (Neg)
[2025-08-26] MEDS: normal saline 1000ml 1,000 ML IV ONE (10:00)
[2025-08-26] MEDS ORDERED: normal saline 1000ml 1,000 ML IV SCH (10:45)
[2025-08-26 10:47] LABS: CREATININE 1.35 MG/DL (0.60-1.10); TOTAL CARBON DIOXIDE 26.4 MMOL/L (24-32); eCRCL 63 ML/MIN; eGFR 67 ML/MIN
[2025-08-26 10:56] LABS: ETHANOL < 10 MG/DL (<10)
[2025-08-26] MEDS ORDERED: potassium Cl 40MEQ/270ML bag 270 ML IV PRN (11:15)
[2025-08-26] MEDS ORDERED: magnesium sulf-water 2g/50mL 50 ML IV PRN ×2 (11:15→12:05)
[2025-08-26] MEDS ORDERED: potassium Cl 40MEQ/1/2NS 520ml 520 ML IV PRN (11:15)
[2025-08-26] MEDS ORDERED: sodium phos 15mmol/D5 255mL 255 ML IV PRN (11:15)
[2025-08-26] MEDS ORDERED: sodium phosphate inj. 30 MMOL in dextrose 5%-water 250 ML IV PRN (11:15)
[2025-08-26] MEDS: ringers solution, lacted 1,000 ML IV SCH ×2 (11:15)
[2025-08-26] MEDS ORDERED: Insulin Reg/NS 100units/100mL 100 ML IV SCH (11:15)
[2025-08-26 11:47] LABS: PHOSPHORUS 5.1 MG/DL (2.3-4.5)
--- NOTE | 2025-08-26 12:01 | HISTORY AND PHYSICAL ---
History & Physical Providers to CC ~ History of Present Illness Reason for Admit\Complaint: ALOC History of Present Illness History of present illness patient is a 55-year-old with a longstanding history of AFib diabetes CHF hypertension hyperlipidemia chronic meth abuse ETOH abuse. Patient is being admitted secondary to his hallucinations that started today morning after he did methamphetamines at 5:00 a.m. along with Gen. Allergies: Coded Allergies: No Known Allergies (Unverified , 08/26/25) Home Medications Home Medications Active Risperidone 1 Mg Tablet 1 Tab PO BID 14 Days Venlafaxine Hcl Er (Venlafaxine Hcl) 75 Mg Cap.sr.24h 3 Cap PO QAM 14 Days Folic Acid* (Folic Acid) Y Tab 1 Mg PO DAILY 30 Days Lantus* (Insulin Glargine) 100 Unit/1 Ml Vial 25 Unit SQ HS 30 Days Metoprolol Succinate 50 Mg Tab.sr.24h 50 Mg PO DAILY 90 Days Reported Lipitor* (Atorvastatin Calcium) 80 Mg Tablet 1 Tab PO DAILY Neurontin (Gabapentin) 300 Mg Capsule 1 Cap PO TID 30 Days Aspirin EC (Aspirin) 81 Mg Tablet.dr 1 Tab PO DAILY Spironolactone 25 Mg Tablet 0.5 Tab PO DAILY Humalog (Insulin Lispro) 100 Unit/Ml Insuln.pen 8-11 Units SQ Past Medical History Past Medical History Past medical history significant for diabetes hypertension hyperlipidemia AFib CHF EF is noted to be 55% on his last echo Osteomyelitis-s/p Amputations Past surgical history Social history Review of systems Family history Allergies are NKDA Family History Family History: FH: congestive heart failure FATHER, , Onset:50's - 60 brother, Onset:50's - 60 brother, Onset:50's - 60 FH: diabetes mellitus MOTHER, , Onset:30's - 40 Exam Vitals: Vital Signs Date Time Temp Pulse Resp B/P (MAP) Pulse Ox O2 Delivery O2 Flow Rate FiO2 08/26/25 10:02 97.8 124 19 118/77 (91) 99 0 General: Patient is alert and oriented x4 in no acute distress lying down comfortably speaking in full sentences HEENT normocephalic nontraumatic head PERRLA. EOMI. CVS first and second heart sounds are regular rate rhythm no murmurs gallops or rubs Respiratory system is clear to auscultate bilaterally no rales rhonchi crackles Or wheezing Abdomen is soft bowel sounds are positive nontender nondistended no hepatosplenomegaly no rigidity no rebound Extremities no clubbing cyanosis or edema The surgical site at the amputated toes is healing well the 4th toe is quite enlarged and curling over the 3rd toe Neurological exam no focal deficits Rectal deferred Skin is intact Diagnostic Data Last Recorded Lab Results: 08/26/25 0926 08/26/25 1013 Additional Plan Assessment and plan -ALOC secondary to methamphetamine and alcohol abuse Replace multivitamins thiamine and folic acid Consult substance abuse navigator Pending DTs Start him on protocol for DTs -diabetes out of control blood sugars are in 800s does not appear to be in DKA We will start the patient on insulin drip Monitor blood sugar Q hour Check hemoglobin A1c NPO for now Start a diabetic diet in a.m. -hypertension -AFib with RVR Patient treated with metoprolol in the ER help decrease the heart rate Continue home meds Continue anticoagulation therapy -hyperlipidemia Continue statins -patient has four stents in his heart -CHF Stable not in any exacerbation - multiple mental health issues with schizophrenia and depression We will resume home meds once med rec is done -DVT prophylaxis -discussed DNR status with patient extensively Date of Service: Aug 26, 2025 Billing Provider: ANA LEWIS MD Common Visit Codes: [id number] INP/OBS CARE (HIGH) Inpatient Consultation Codes: [id number] CONSULT <45MIN ANA LEWIS MD Aug 26, 2025 12:01
[2025-08-26] MEDS ORDERED: mag hydrox/Alum hydrox/simeth 30ml oral suspension PO PRN (12:05)
[2025-08-26] MEDS ORDERED: HYDROcodone/acetaminophen 10/325mg tab PO PRN (12:05)
[2025-08-26] MEDS ORDERED: magnesium hydroxide 30ml (MOM) UD suspension PO PRN (12:05)
[2025-08-26] MEDS ORDERED: magnesium sulf-water 4G/100mL 100 ML IV PRN (12:05)
[2025-08-26] MEDS ORDERED: ondansetron/PF 4mg/2ml inj IV PRN (12:05)
[2025-08-26] MEDS ORDERED: potassium Cl 20 mEq SR tablet PO PRN ×2 (12:05)
[2025-08-26] MEDS ORDERED: HYDROcodone/acetaminophen 5mg/325mg tablet PO PRN (12:05)
[2025-08-26] MEDS ORDERED: magnesium Cl slow-release 64mg tablet PO PRN (12:05)
--- NOTE | 2025-08-26 12:11 | ELECTROCARDIOGRAPH REPORT ---
[facility] Test Date: 2025-08-26 Test Time: 09:02:00 Pat Name: SUSHMA ESPITIA Department: EMERGENCY ROOM Room: [place] [address] Gender: M Hand Button Splitter: JELLY : 1970 Requested By: BRAYAN DASH Order Number: [id number] Reading MD: Dr. HEIDY Mancia Measurements Intervals [place] Rate: 138 P: 0 NC: 0 QRS: 89 QRSD: 93 T: -59 QT: 326 QTc: 494 Interpretive Statements Atrial fibrillation Probable LVH with secondary repol abnrm ST depr, consider ischemia, inferior leads Borderline prolonged QT interval Baseline wander in lead(s) V1 Electronically Signed On 08-27-2025 19:39:[address] HEIDY Mancia Please click the below link to view image of tracing.
[2025-08-26] MEDS: Insulin Reg/NS 100units/100mL 100 ML IV SCH (12:16)
[2025-08-26] MEDS: potassium Cl 40MEQ/1/2NS 520ml 520 ML IV PRN (12:52)
[2025-08-26] MEDS ORDERED: DEXTROSE 15 GM of carb/4 tabs (each vial/BOTTLE has 4 tablets) PO PRN ×2 (16:30)
[2025-08-26] MEDS ORDERED: dextrose 50%-water 50ml dispensing syringe IV PRN ×2 (16:30)
[2025-08-26] MEDS ORDERED: glucagon, human recombinant 1mg kit SUBCUT PRN (16:30)
[2025-08-26 16:55] LABS: CREATININE 1.00 MG/DL (0.60-1.10); TOTAL CARBON DIOXIDE 28.2 MMOL/L (24-32); eCRCL 84 ML/MIN; eGFR > 90 ML/MIN
[2025-08-26 17:00] VITALS: BP 158/87; PULSE 94; RESP 15; TEMP 99; O2SAT 98
[2025-08-26] MEDS: INSULIN LISPRO 100 UNIT/ML INSULN.PEN MULTI-DOSE SQ SCH (17:00)
[2025-08-26 18:00] VITALS: BP 106/70; PULSE 78; RESP 22; TEMP 97.5; O2SAT 99
[2025-08-26] MEDS: K and/or MAG REPLACEMENT MC SCH (19:50)
[2025-08-26] MEDS: docusate sod 100mg capsule PO SCH (19:51)
[2025-08-26 20:00] VITALS: RESP 22; O2SAT 98
[2025-08-26] MEDS: nicotine 14mg patch - 24hr TD SCH (20:04)
[2025-08-26] MEDS: aspirin 81mg, enteric-coated 1 TAB TABLET.DR PO SCH (20:11)
[2025-08-26] MEDS: metoprolol succinate 25mg (24-HOUR) SR. Tablet PO SCH (20:11)
[2025-08-26] MEDS: insulin glargine (Lantus) pen - multi-dose SQ SCH (21:21)
[2025-08-26 22:00] VITALS: BP 128/79; PULSE 90; RESP 18; TEMP 97.5; O2SAT 96
[2025-08-27] MEDS: dextrose 50%-water 50ml dispensing syringe IV PRN (01:38)
[2025-08-27 02:00] VITALS: BP 135/74; PULSE 64; RESP 14; TEMP 97.6; O2SAT 96
[2025-08-27 06:00] VITALS: BP 117/73; PULSE 88; RESP 18; TEMP 97; O2SAT 99
[2025-08-27 07:38] LABS: MEAN PLATELET VOLUME 8.0 FL (7.4-10.4); RED CELL DISTRIBUTION WIDTH 14.8 % (11.5-14.5)
[2025-08-27 07:53] LABS: INR 1.0 INR
[2025-08-27 08:00] VITALS: RESP 18; O2SAT 99
[2025-08-27 08:33] LABS: CHOL/HDL RATIO 2.2 (0.00-4.99); CREATININE 1.00 MG/DL (0.60-1.10); LDL CHOLESTEROL 62 MG/DL (50-100); PHOSPHORUS 3.7 MG/DL (2.3-4.5); TOTAL CARBON DIOXIDE 29.1 MMOL/L (24-32); eCRCL 84 ML/MIN; eGFR > 90 ML/MIN
[2025-08-27 11:00] VITALS: BP 145/84; PULSE 79; RESP 14; TEMP 99; O2SAT 99
[2025-08-27] MEDS ORDERED: APIX5TAB3 PO (12:02)
--- NOTE | 2025-08-27 19:03 | DISCHARGE SUMMARY ---
Discharge Summary Providers to CC ~ Discharge Summary Admission Diagnosis: AFib with RVR a LOC Hospital Course DATE OF ADMISSION: 08/26/2025 DATE OF DISCHARGE: 08/27/2025 Discharge Diagnosis\\Comment: Encephalopathy mixed both toxic and metabolic, hypertension, methamphetamine use disorder, uncontrolled diabetes mellitus, atrial fibrillation, hyperlipidemia, schizophrenia Operations\\Procedures: None Consultants: None Complications: None Condition on DC: Stable New Medications: Apixaban (Eliquis) 5 Mg Tablet 5 MG PO BID, #60 TAB Continued Medications: Aspirin (Aspirin EC) 81 Mg Tablet.dr 1 TAB PO DAILY Atorvastatin Calcium* (Lipitor*) 80 Mg Tablet 1 TAB PO DAILY, TAB Folic Acid* (Folic Acid*) Y Tab 1 MG PO DAILY for 30 Days, #30 TAB Gabapentin (Neurontin) 300 Mg Capsule 1 CAP PO TID for 30 Days, #90 CAP 0 Refills Insulin Glargine,Hum.rec.anlog* (Lantus*) 100 Unit/1 Ml Vial 25 UNIT SQ HS for 30 Days, #2 VIAL Insulin Lispro (Humalog) 100 Unit/Ml Insuln.pen 8-11 UNITS SQ Metoprolol Succinate (Metoprolol Succinate) 50 Mg Tab.sr.24h 50 MG PO DAILY for 90 Days, #90 TAB.SR Risperidone (Risperidone) 1 Mg Tablet 1 TAB PO BID for 14 Days, #28 TAB 0 Refills Spironolactone (Spironolactone) 25 Mg Tablet 0.5 TAB PO DAILY Venlafaxine Hcl (Venlafaxine Hcl Er) 75 Mg Cap.sr.24h 3 CAP PO QAM for 14 Days, #42 CAP.SR Discharge Summary: The patient is admitted by Dr. [place] Douglass with the following HP I"History of present illness patient is a 55-year-old with a longstanding history of AFib diabetes CHF hypertension hyperlipidemia chronic meth abuse ETOH abuse. Patient is being admitted secondary to his hallucinations that started today morning after he did methamphetamines at 5:00 a.m. along with Gen." The patient is mentation cleared by the morning of the . 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 Gen. No acute distress alert and oriented 4 Lungs clear to ascultation bilaterally, no wheezes rales or rhonchi appreciated Heart normal sinus rhythm no murmurs rubs or clicks noted Abdomen soft nontender bowel sounds are normoactive Lower extremities no clubbing cyanosis, nor edema appreciated bilaterally The patient felt ready to be discharged and was medically cleared to be discharged on 08/27/2025 The patient was seen and evaluated on day of discharge. Time spent on discharge 35 minutes The patient recovered sooner than to be expected with toxic and metabolic encephalopathy uncontrolled diabetes mellitus. *Problems/Diagnosis: (1) Methamphetamine abuse Status: Acute Total Time Spent on D/C: > 30 Minutes Date of Service: Aug 27, 2025 Billing Provider: MICHELLE HAMILTON DO Common Visit Codes: 90266-RTQ/OBS DISCH DAY >30min MICHELLE HAMILTON DO Aug 27, 2025 19:02
== END 2025-08-27 14:08 | disposition home or self-care (01) | DRG 201 ==
LOC: ER 08:34 → ED HOLD 12:16 → PCU 3S 16:52
PROVIDERS: ADMIT Internal Medicine; ATTEND Internal Medicine
DX: I48.91 Unspecified atrial fibrillation (principal); G92.8 Other toxic encephalopathy; Z66 Do not resuscitate; I11.0 Hypertensive heart disease with heart failure; E11.65 Type 2 diabetes mellitus with hyperglycemia; F32.A Depression, unspecified; F15.10 Other stimulant abuse, uncomplicated; F20.9 Schizophrenia, unspecified; F10.10 Alcohol abuse, uncomplicated; Z86.74 Personal history of sudden cardiac arrest; E78.5 Hyperlipidemia, unspecified; F41.9 Anxiety disorder, unspecified; I25.10 Atherosclerotic heart disease of native coronary artery without angina pectoris; Z98.61 Coronary angioplasty status; Z79.01 Long term (current) use of anticoagulants; Z89.422 Acquired absence of other left toe(s); Z83.3 Family history of diabetes mellitus; Z82.49 Family history of ischemic heart disease and other diseases of the circulatory system; Z79.4 Long term (current) use of insulin
CPT/HCPCS: 36415; 71045; 80053; 80061; 80305; 80320; 82150; 82248; 82607; 82948; 83036; 83605; 83690; 83735; 84100; 84484; 85025; 85610; 87081; 93005; 99285; G0378; J1815; J2060; J3480; J3490; J7030; J7120